=== PATIENT | male | born 1940 | race Caucasian/White ===

== ENCOUNTER 2018-01-03 10:33 | Inpatient (IN) ==
[2018-01-03] MEDS ORDERED: Acetaminophen 325 MG Tablet PO ONE (10:58)
[2018-01-03] MEDS ORDERED: Vancomycin Inj 1,000 MG in Sodium Chlor 0.9% Inj 250 ML IV.SIG STA (10:58)
[2018-01-03] MEDS ORDERED: MethylPREDNISolone Sod Succinate Inj 125 MG/2 ML Vial IV.PUSH ONE (10:58)
[2018-01-03] MEDS ORDERED: Piperacil/Tazo 4.5 GM Premix 4.5 GM/100 ML BAG IV.SIG STA (10:58)
--- NOTE | 2018-01-03 11:15 | ED ---
HPI General Chief Complaint: Shortness of Breath/Dyspnea Stated Complaint: SOB Time Seen by Provider: 01/03/18 10:55 Source: patient and family Limitations: other (shortness of breath) History of Present Illness 77-year-old male who is visiting here states he is always short of breath but over the past day he is gotten significantly more short of breath. He tried his breathing treatments but they did not help. Complaint: shortness of breath Onset (ago): day(s) Context: recent travel Severity: severe Consistency/Duration: progressively worsening Relieving factors: nothing Exacerbating factors: movement Known history of: COPD Associated symptoms: denies other symptoms Treatment prior to arrival: bronchodilator Related Data Home oxygen amount: none Allergies Allergy/AdvReac Type Severity Reaction Status Date / Time lisinopril Allergy Cough Verified 01/03/18 11:00 Review of Systems Except as stated in HPI: all other systems reviewed are negative (per family member) PMFSH History History Provided By: Family Member Medical History Medical History Afib (Acute) Bladder cancer (Acute) CAD (coronary artery disease) (Acute) COPD (chronic obstructive pulmonary disease) (Acute) Surgical History Surgical History History of urostomy (Acute) Social History Social History Second Hand Smoke Exposure: No Smoking Status: Former smoker Tobacco Type: Cigarettes How Often Do You Have a Drink Containing Alcohol: Never Recent Travel in [facility] within the Last 8 Weeks: No Recent Out of Country Travel within the Last 8 Weeks: No Exam Narrative Exam Narrative: GENERAL: 77-year-old male who appears short of breath SKIN: Focused skin assessment warm/dry. HEAD: Atraumatic. Normocephalic. EYES: Pupils equal and round. No scleral icterus. No injection or drainage. ENT: No nasal bleeding or discharge. Mucous membranes pink and moist. NECK: Trachea midline. No JVD. CARDIOVASCULAR: Tachycardic rate RESPIRATORY: Increased effort, decreased aeration bilaterally. GASTROINTESTINAL: Abdomen soft, non-tender, nondistended. MUSCULOSKELETAL: No obvious deformities. No clubbing. No cyanosis. NEUROLOGICAL: Awake. Motor grossly within normal limits. Normal speech. Course Reevaluation(s) Reevaluation #1: On reevaluation tachypnea has improved. Patient given IV fluids. Given broad-spectrum antibiotics originally but after review of x-ray azithromycin was also added on in addition to Zosyn and vancomycin. CTA will be ordered to rule out PE given multiple risk factors Reevaluation #2: CTA without PE. Findings show pneumonia with sepsis. He will be admitted for further care Consultations Consultation #1: resident team agree to admit with close monitoring in intermediate care Initial Documented Vital Signs Temperature 101.2 F H 01/03/18 10:36 Pulse Rate 126 H 01/03/18 10:36 Respiratory Rate 25 H 01/03/18 10:36 Blood Pressure 125/62 01/03/18 10:36 Pulse Oximetry 87 L 01/03/18 10:36 Last Documented Vital Signs Temperature 99.2 F 01/03/18 11:33 Pulse Rate 120 H 01/03/18 11:20 Respiratory Rate 36 H 01/03/18 11:20 Blood Pressure 132/75 01/03/18 10:45 Pulse Oximetry 94 L 01/03/18 11:19 Critical Care Time Critical Care Time: Yes Total Critical Care Time: 31 Attestation: Aggregate critical care time was 31 minutes. Time to perform other separately billable procedures was not included in the critical care time. My time did not include minutes spent treating any other patients simultaneously or on activities that did not directly contribute to the patient's treatment. The services I provided to this patient were to treat and/or prevent clinically significant deterioration that could result in: Respiratory failure, shock I provided critical care services requiring my management, as noted below: Chart data review, documentation time, medication orders and management, vital sign assessments/reviewing monitor data, ordering and reviewing lab tests, ordering and interpreting/reviewing x-rays and diagnostic studies, care of the patient and discussion of the patient with the admitting physicians. Medical Decision Making MDM Narrative Medical decision making narrative: Will check blood work, imaging and dose with Solu-Medrol and duo nebs and reevaluate. Differential Diagnosis Differential Diagnosis: PE, pneumonia, CHF, sepsis, renal failure, [place] Lab Data Lab results reviewed: Yes I reviewed the patient's lab results. Result diagrams: 01/03/18 11:20 01/03/18 11:20 Lab Results 01/03/18 01/03/18 01/03/18 Range/Units 11:10 11:20 11:20 WBC 15.1 H (4.0-11.0) th/mm3 RBC 5.28 (4.50-5.90) mil/mm3 Hgb 14.2 (13.0-17.0) gm/dL Hct 43.6 (39.0-51.0) % MCV 82.6 (80.0-100.0) fL MCH 26.9 L (27.0-34.0) pg MCHC 32.5 (32.0-36.0) % RDW 14.5 (11.6-17.2) % Plt Count 300 (150-450) th/mm3 MPV 8.8 (7.0-11.0) fL Neut % (Auto) 85.9 H (16.0-70.0) % Lymph % (Auto) 7.3 L (9.0-44.0) % [place] % (Auto) 6.2 (0.0-8.0) % Eos % (Auto) 0.1 (0.0-4.0) % Baso % (Auto) 0.5 (0.0-2.0) % Neut # (Auto) 13.0 H (1.8-7.7) th/mm3 Lymph # (Auto) 1.1 (1.0-4.8) th/mm3 [place] # (Auto) 0.9 (0.0-0.9) th/mm3 Eos # (Auto) 0.0 (0.0-0.4) th/mm3 Baso # (Auto) 0.1 (0.0-0.2) th/mm3 WBC Differential . Differential Comment Auto diff final PT 19.9 H (9.8-11.6) sec INR 2.0 Ratio APTT 22.4 L (24.3-30.1) sec Puncture Site Right radial Patient Temperature 98.6 O2 Saturation 94 (90-100) % ABG pH 7.52 H* (7.380-7.420) ABG pCO2 26 L (38-42) mmHg ABG pO2 72 (61-120) mmHg ABG HCO3 21 L (22-26) mmol/L ABG O2 Content 18.2 (12.0-20.0) Vol % ABG Base Excess -1.8 (-2-2) mmol/L ABG Methemoglobin 0.7 (0-2) % Bird Test Present Hemoglobin 13.8 (12.0-16.0) G/DL Carboxyhemoglobin 1.3 (0-4) % O2 Delivery Device Nasal cannula Liter Flow 2.00 L/M Critical Value Yes Sodium (136-145) meq/L Potassium (3.5-5.1) meq/L Chloride (98-107) meq/L Carbon Dioxide (21.0-32.0) meq/L Anion Gap (5-15) meq/L BUN (7-18) mg/dL Creatinine (0.60-1.30) mg/dL Estimated GFR (>89) mL/min Random Glucose (74-106) mg/dL Lactic Acid (0.4-2.0) mmol/L Calcium (8.5-10.1) mg/dL Magnesium (1.5-2.5) mg/dL Total Bilirubin (0.2-1.0) mg/dL AST (15-37) U/L ALT (12-78) U/L Alkaline Phosphatase (45-117) U/L Total Creatine Kinase (39-308) U/L CK-MB (CK-2) (0.5-3.6) ng/mL Troponin I (0.02-0.05) ng/mL B-Natriuretic Peptide (0-100) pg/mL Total Protein (6.4-8.2) g/dL Albumin (3.4-5.0) g/dL Urine Color (Yellw/Straw) Urine Clarity (Clear) Urine pH (5.0-8.5) Ur Specific [place] (1.002-1.035) Urine Protein (Neg-Trace) mg/dL Urine Glucose (UA) (Negative) mg/dL Urine Ketones (Negative) mg/dL Urine Occult Blood (Negative) Urine Nitrate (Negative) Urine Bilirubin (Negative) Urine Urobilinogen (Less than 2) mg/dL Ur Leukocyte Esterase (Negative) Urine RBC (0-3) /hpf Urine WBC (0-5) /hpf Urine WBC Clumps (None) Ur Squamous Epith Cells (0-5) /hpf Ur Renal Epithelial Cell (None) /hpf Triple Phos Crystals (None) /hpf Amorphous Sediment (None) /hpf Urine Bacteria (None) /hpf Urine Mucus (Occasional) /lpf Micro UA Comment Urine Culture Comments 01/03/18 01/03/18 01/03/18 Range/Units 11:20 11:20 11:20 WBC (4.0-11.0) th/mm3 RBC (4.50-5.90) mil/mm3 Hgb (13.0-17.0) gm/dL Hct (39.0-51.0) % MCV (80.0-100.0) fL MCH (27.0-34.0) pg MCHC (32.0-36.0) % RDW (11.6-17.2) % Plt Count (150-450) th/mm3 MPV (7.0-11.0) fL Neut % (Auto) (16.0-70.0) % Lymph % (Auto) (9.0-44.0) % Weak[place] % (Auto) (0.0-8.0) % Eos % (Auto) (0.0-4.0) % Baso % (Auto) (0.0-2.0) % Neut # (Auto) (1.8-7.7) th/mm3 Lymph # (Auto) (1.0-4.8) th/mm3 [place] # (Auto) (0.0-0.9) th/mm3 Eos # (Auto) (0.0-0.4) th/mm3 Baso # (Auto) (0.0-0.2) th/mm3 WBC Differential Differential Comment PT (9.8-11.6) sec INR Ratio APTT (24.3-30.1) sec Puncture Site Patient Temperature O2 Saturation (90-100) % ABG pH (7.380-7.420) ABG pCO2 (38-42) mmHg ABG pO2 (61-120) mmHg ABG HCO3 (22-26) mmol/L ABG O2 Content (12.0-20.0) Vol % ABG Base Excess (-2-2) mmol/L ABG Methemoglobin (0-2) % Bird Test Hemoglobin (12.0-16.0) G/DL Carboxyhemoglobin (0-4) % O2 Delivery Device Liter Flow L/M Critical Value Sodium 140 (136-145) meq/L Potassium 4.0 (3.5-5.1) meq/L Chloride 107 (98-107) meq/L Carbon Dioxide 20.2 L (21.0-32.0) meq/L Anion Gap 13 (5-15) meq/L BUN 34 H (7-18) mg/dL Creatinine 1.91 H (0.60-1.30) mg/dL Estimated GFR 34 L (>89) mL/min Random Glucose 199 H (74-106) mg/dL Lactic Acid 2.6 H (0.4-2.0) mmol/L Calcium 8.2 L (8.5-10.1) mg/dL Magnesium 1.6 (1.5-2.5) mg/dL Total Bilirubin 0.6 (0.2-1.0) mg/dL AST 15 (15-37) U/L ALT 21 (12-78) U/L Alkaline Phosphatase 74 (45-117) U/L Total Creatine Kinase 207 (39-308) U/L CK-MB (CK-2) 2.9 (0.5-3.6) ng/mL Troponin I 0.12 H (0.02-0.05) ng/mL B-Natriuretic Peptide 270 H (0-100) pg/mL Total Protein 7.1 (6.4-8.2) g/dL Albumin 3.0 L (3.4-5.0) g/dL Urine Color (Yellw/Straw) Urine Clarity (Clear) Urine pH (5.0-8.5) Ur Specific [place] (1.002-1.035) Urine Protein (Neg-Trace) mg/dL Urine Glucose (UA) (Negative) mg/dL Urine Ketones (Negative) mg/dL Urine Occult Blood (Negative) Urine Nitrate (Negative) Urine Bilirubin (Negative) Urine Urobilinogen (Less than 2) mg/dL Ur Leukocyte Esterase (Negative) Urine RBC (0-3) /hpf Urine WBC (0-5) /hpf Urine WBC Clumps (None) Ur Squamous Epith Cells (0-5) /hpf Ur Renal Epithelial Cell (None) /hpf Triple Phos Crystals (None) /hpf Amorphous Sediment (None) /hpf Urine Bacteria (None) /hpf Urine Mucus (Occasional) /lpf Micro UA Comment Urine Culture Comments 01/03/18 Range/Units 11:45 WBC (4.0-11.0) th/mm3 RBC (4.50-5.90) mil/mm3 Hgb (13.0-17.0) gm/dL Hct (39.0-51.0) % MCV (80.0-100.0) fL MCH (27.0-34.0) pg MCHC (32.0-36.0) % RDW (11.6-17.2) % Plt Count (150-450) th/mm3 MPV (7.0-11.0) fL Neut % (Auto) (16.0-70.0) % Lymph % (Auto) (9.0-44.0) % [place] % (Auto) (0.0-8.0) % Eos % (Auto) (0.0-4.0) % Baso % (Auto) (0.0-2.0) % Neut # (Auto) (1.8-7.7) th/mm3 Lymph # (Auto) (1.0-4.8) th/mm3 [place] # (Auto) (0.0-0.9) th/mm3 Eos # (Auto) (0.0-0.4) th/mm3 Baso # (Auto) (0.0-0.2) th/mm3 WBC Differential Differential Comment PT (9.8-11.6) sec INR Ratio APTT (24.3-30.1) sec Puncture Site Patient Temperature O2 Saturation (90-100) % ABG pH (7.380-7.420) ABG pCO2 (38-42) mmHg ABG pO2 (61-120) mmHg ABG HCO3 (22-26) mmol/L ABG O2 Content (12.0-20.0) Vol % ABG Base Excess (-2-2) mmol/L ABG Methemoglobin (0-2) % Bird Test Hemoglobin (12.0-16.0) G/DL Carboxyhemoglobin (0-4) % O2 Delivery Device Liter Flow L/M Critical Value Sodium (136-145) meq/L Potassium (3.5-5.1) meq/L Chloride (98-107) meq/L Carbon Dioxide (21.0-32.0) meq/L Anion Gap (5-15) meq/L BUN (7-18) mg/dL Creatinine (0.60-1.30) mg/dL Estimated GFR (>89) mL/min Random Glucose (74-106) mg/dL Lactic Acid (0.4-2.0) mmol/L Calcium (8.5-10.1) mg/dL Magnesium (1.5-2.5) mg/dL Total Bilirubin (0.2-1.0) mg/dL AST (15-37) U/L ALT (12-78) U/L Alkaline Phosphatase (45-117) U/L Total Creatine Kinase (39-308) U/L CK-MB (CK-2) (0.5-3.6) ng/mL Troponin I (0.02-0.05) ng/mL B-Natriuretic Peptide (0-100) pg/mL Total Protein (6.4-8.2) g/dL Albumin (3.4-5.0) g/dL Urine Color [place] (Yellw/Straw) Urine Clarity Cloudy H (Clear) Urine pH 8.0 (5.0-8.5) Ur Specific [place] 1.014 (1.002-1.035) Urine Protein 500 or greater (Neg-Trace) mg/dL Urine Glucose (UA) Negative (Negative) mg/dL Urine Ketones Negative (Negative) mg/dL Urine Occult Blood Negative (Negative) Urine Nitrate Negative (Negative) Urine Bilirubin Negative (Negative) Urine Urobilinogen 2.0 H (Less than 2) mg/dL Ur Leukocyte Esterase Small H (Negative) Urine RBC 4 H (0-3) /hpf Urine WBC 22 H (0-5) /hpf Urine WBC Clumps Rare H (None) Ur Squamous Epith Cells 3 (0-5) /hpf Ur Renal Epithelial Cell 1 (None) /hpf Triple Phos Crystals Many H (None) /hpf Amorphous Sediment Many H (None) /hpf Urine Bacteria Many H (None) /hpf Urine Mucus Few H (Occasional) /lpf Micro UA Comment Culture indicated Urine Culture Comments Culture indicated Imaging Data Attestation: I personally reviewed and interpreted this imaging study as follows : Radiologist's impression: Chest X-Ray 01/03/18 10:58 CONCLUSION: Patchy infiltrate in the left perihilar region and left lung base most characteristic of pneumonia. Chest CTA 01/03/18 12:04 CONCLUSION: 1. No evidence of pulmonary emboli. 2. Lingula and left lower lobe infiltrate most characteristic of pneumonia. 3. Small focal area of abnormal opacity in the right middle lobe as well. 4. Underlying emphysema. Discharge Plan Discharge Disposition Patient Disposition: 30 Still Patient Discharge Details Diagnosis: Sepsis, Community acquired pneumonia, Acute exacerbation of chronic obstructive airways disease Physicians Team ED Provider: Prisca Obrien Primary Care Provider: UNKNOWN, Attending Provider: Lisa Garber Discharge Interventions Interventions: Vital Signs Last Done: 01/03/18 11:33 Status ED Status: Admitted Patient
[2018-01-03 11:31] LABS: Baso # (Auto) 0.1 th/mm3 (0.0-0.2); Baso % (Auto) 0.5 % (0.0-2.0); Eos % (Auto) 0.1 % (0.0-4.0); Hematocrit 43.6 % (39.0-51.0); Hemoglobin 14.2 gm/dL (13.0-17.0); Lymph # (Auto) 1.1 th/mm3 (1.0-4.8); Lymph % (Auto) 7.3 % (9.0-44.0); Mean Corpuscular HGB Conc 32.5 % (32.0-36.0); Mean Corpuscular Hemoglobin 26.9 pg (27.0-34.0); Mean Corpuscular Volume 82.6 fL (80.0-100.0); Mean Platelet Volume 8.8 fL (7.0-11.0); Mono # (Auto) 0.9 th/mm3 (0.0-0.9); Mono % (Auto) 6.2 % (0.0-8.0); Neut % (Auto) 85.9 % (16.0-70.0); Platelet Count 300 th/mm3 (150-450); Red Blood Count 5.28 mil/mm3 (4.50-5.90); Red Cell Distribution Width 14.5 % (11.6-17.2); White Blood Count 15.1 th/mm3 (4.0-11.0)
[2018-01-03 11:32] LABS: ABG Base Excess -1.8 mmol/L (-2-2); ABG PCO2 26 mmHg (38-42); ABG PO2 72 mmHg (61-120)
[2018-01-03 11:42] LABS: Activated Partial Thrombo Time 22.4 sec (24.3-30.1); Prothrombin Time 19.9 sec (9.8-11.6)
--- NOTE | 2018-01-03 11:48 | XR ---
EXAM DATE: 01/03/2018 11:37 AM EDT AGE/SEX: 77 years / Male INDICATIONS: Short of breath. Fever. CLINICAL DATA: This is the patient's initial encounter. Patient reports that signs and symptoms have been present for 1 day and indicates a pain score of 6/10. MEDICAL/SURGICAL HISTORY: None. None. COMPARISON: No prior exams available for comparison. FINDINGS: 2 AP portable erect views of the chest were obtained and demonstrate patchy infiltrate in the left pe rihilar region and left lung base. The right lung is clear. There is no effusion. The heart size is a t the upper limits of normal. The bony thorax is intact. There are multiple overlying electrocardiogr am leads. Mild atherosclerotic changes are present in the aorta with calcification. CONCLUSION: Patchy infiltrate in the left perihilar region and left lung base most characteristic of pneumonia. Electronically signed by: Chong Ford MD 01/03/2018 11:47 AM EDT
[2018-01-03 11:56] LABS: Anion Gap 13 meq/L (5-15); Aspartate Aminotransferase 15 U/L (15-37); Blood Urea Nitrogen 34 mg/dL (7-18); Calcium 8.2 mg/dL (8.5-10.1); Carbon Dioxide 20.2 meq/L (21.0-32.0); Chloride 107 meq/L (98-107); Glomerular Filtration Rate 34 mL/min (>89); Glucose,Random 199 mg/dL (74-106); Magnesium 1.6 mg/dL (1.5-2.5); Sodium 140 meq/L (136-145)
[2018-01-03 11:57] LABS: Alanine Aminotransferase 21 U/L (12-78)
[2018-01-03 12:00] LABS: Alkaline Phosphatase 74 U/L (45-117); Creatine Kinase 207 U/L (39-308); Total Protein 7.1 g/dL (6.4-8.2); Troponin I 0.12 ng/mL (0.02-0.05)
[2018-01-03] MEDS ORDERED: Azithromycin Inj 500 MG in Sodium Chlor 0.9% Inj 250 ML IV.SIG ONE (12:02)
[2018-01-03] MEDS ORDERED: Sod Chloride 0.9% Inj 1,000 ML IV.SIG ONE (12:06)
[2018-01-03] MEDS ORDERED: Sodium Chlor 0.9% Inj 500 ML IV.SIG ONE (12:10)
[2018-01-03 12:13] LABS: Creatine Kinase MB 2.9 ng/mL (0.5-3.6)
[2018-01-03 12:25] LABS: Amorphous Sediment,Urine Many /hpf; Bacteria,Urine Many /hpf; Bilirubin,Urine Negative (Negative); Clarity,Urine Cloudy (Clear); Color,Urine Amber (Yellw/Straw); Glucose,Urine (UA) Negative (Negative); Leukocyte Esterase,Urine Small (Negative); Mucus,Urine Few /lpf (Occasional); Nitrite,Urine Negative (Negative); Renal Epithelial Cells,Urine 1 /hpf; Specific Gravity,Urine 1.014 (1.002-1.035); Squamous Epithelial Cell,Urine 3 /hpf (0-5); Triple Phosphate Crystal,Urine Many /hpf
--- NOTE | 2018-01-03 12:59 | CT ---
EXAM DATE: 01/03/2018 12:45 PM EDT AGE/SEX: 77 years / Male INDICATIONS: Shortness of breath today. Fever. Abnormal chest x-ray examination characteristic of l eft lung pneumonia. CLINICAL DATA: This is the patient's initial encounter. Patient reports that signs and symptoms have been present for 1 day and indicates a pain score of 0/10. MEDICAL/SURGICAL HISTORY: Carcinoma, bladder. Chronic obstructive pulmonary disease. Cardiovascul ar disease. None. RADIATION DOSE: 10.81 CTDI (mGy) COMPARISON: [facility], CHEST 1V SINGLE AP, 01/03/2018. . TECHNIQUE: Volumetric scanning was performed using a multi-row detector CT scanner during bolus infu jenna of 50 ml Visipaque 320 (iodixanol) nonionic water-soluble contrast as a single exam dose. The d matt was post processed with a variety of visualization algorithms including full volume maximum inten sity projection and sliding thin slab reformation. Using automated exposure control and adjustment of the mA and/or kV according to patient size, radiation dose was kept as low as reasonably achievable to obtain optimal diagnostic quality images. DICOM format image data is available electronically for review and comparison. FINDINGS: Pulmonary Arteries: No filling defects are seen in the pulmonary arteries out to the subsegmental ve ssels. The left and right pulmonary arteries are normal in diameter. Lung: There are multiple small areas of consolidative opacity in the lingula as well as more patchy infiltrate in the left lower lobe. There is a single focal area of mild opacity in the right middle l obe. There is hyperinflation and emphysema. Effusion: None. Mediastinum: No evidence of mediastinal or hilar adenopathy. Other: The axilla is unremarkable. CONCLUSION: 1. No evidence of pulmonary emboli. 2. Lingula and left lower lobe infiltrate most characteristic of pneumonia. 3. Small focal area of abnormal opacity in the right middle lobe as well. 4. Underlying emphysema. Electronically signed by: Chong Ford MD 01/03/2018 12:58 PM EDT
--- NOTE | 2018-01-03 13:24 | P.HPFP ---
History of Present Illness Primary Care Physician: UNKNOWN <Lisa Garber - 01/04/18 12:25> UNKNOWN <Carlota Grande - 01/03/18 13:44> History of Present Illness: 77-year-old male, past medical history of COPD, chronic kidney disease stage III, atrial fibrillation, coronary artery disease, diabetes, CHF presents with community-acquired pneumonia. Pt had chills and shaking this morning and was having more trouble breathing than normal. This was at 08:30AM, and they arrived at 9:30AM in the ED. He did not take any of his medications yet today. He did use his Advair inhaler this morning in addition to his "emergency inhaler" which usually helps. He did not feel feverish. The did notice that his nose was turning purple colored this morning. As of now, he looks 100% better than this morning. He has never been hospitalized for his COPD before and this is the first time he has felt this time of shortness of breath. Denies any chest pain/ pressure. Denies any N/V. No numbness/tingling. He did experience some dizzyness. The whole episode lasted about 1 hour until they got here and administered O2. Left leg was swollen 2 weeks ago at PCP's office and venous u/s was done, negative results. <Carlota Grande - 01/04/18 03:10> - Diagnosis (1) Community acquired pneumonia (2) COPD (chronic obstructive pulmonary disease) (3) Kidney disease, chronic, stage III (GFR 30-59 ml/min) (4) Afib (5) Elevated troponin (6) Abnormal finding on urinalysis (7) CAD (coronary artery disease) (8) Diabetes (9) CHF (congestive heart failure) (10) Nutrition, metabolism, and development symptoms (11) DVT prophylaxis <Lisa Garber - 01/04/18 12:25> (1) Community acquired pneumonia (2) COPD (chronic obstructive pulmonary disease) (3) Kidney disease, chronic, stage III (GFR 30-59 ml/min) (4) Afib (5) Elevated troponin (6) Abnormal finding on urinalysis (7) CAD (coronary artery disease) (8) Diabetes (9) CHF (congestive heart failure) (10) Nutrition, metabolism, and development symptoms (11) DVT prophylaxis <Carlota Grande 07/23/18 03:03> Inpatient Certification: I certify that the inpatient services were ordered in accordance with Medicare regulations governing the order. This includes certification that hospital inpatient services are reasonable and necessary and in the case of services not specified as inpatient-only under 42 CFR 419.22(n), that they are appropriately provided as inpatient services in accordance to with the 2-midnight benchmark under 43 CFR 412.3(e) <JcarlosLisa 01/04/18 12:25> I certify that the inpatient services were ordered in accordance with Medicare regulations governing the order. This includes certification that hospital inpatient services are reasonable and necessary and in the case of services not specified as inpatient-only under 42 CFR 419.22(n), that they are appropriately provided as inpatient services in accordance to with the 2-midnight benchmark under 43 CFR 412.3(e) [facility]> Review of Systems Constitutional: Denies anorexia, Denies daytime sleepiness, Denies fever(s), Denies weakness, Denies weight loss <[facility] 01/03/18 13:44> Eyes: Denies blurry vision <[facility] 01/03/18 13:44> Ears, Nose, Mouth, and Throat: Denies abnormal hearing, Denies nasal congestion , Denies nose pain, Denies sinus pressure, Denies sore throat <[facility] 01/03/18 13:44> Cardiovascular: Denies chest pain, Denies chest pain at rest, Denies chest pain with activity, Denies radiating jaw, neck or arm pain, Denies rapid, pounding, or irregular heartbeat, Denies shortness of breath with activity <[facility] 01/03/18 13:44> Respiratory: Reports chest congestion (clear/yellow, normal as baseline), Reports cough, Reports shortness of breath with activity, Denies coughing up blood, Denies pain with cough <[facility] 01/03/18 13:44> Gastrointestinal: Denies black, tarry stools, Denies change in bowel habits, Denies coffee ground vomit, Denies pain with swallowing <[facility] 13:44> Genitourinary: Denies blood in urine, Denies urinary hesitancy, Denies urinary incontinence <Carlota Grande 01/03/18 13:44> Musculoskeletal: Denies back pain, Denies body aches, Denies muscle weakness, Denies neck pain <Carlota Grande 01/03/18 13:44> Neurologic: Denies abnormal hearing, Denies abnormal movements, Denies headache( s), Denies convulsions <Carlota Grande 01/03/18 13:44> Psychiatric: Denies depression, Denies mood swings, Denies panic attacks < Carlota Grande 01/03/18 13:44> Endocrine: Denies excessive sweating, Denies rapid, pounding, or irregular heartbeat <Carloat Grande 01/03/18 13:44> Hematologic/Lymphatic: Denies easy bruising <Carlota Grande 01/03/18 13:44> Allergic/Immunologic: Denies throat swelling <Carlota Grande 01/03/18 13:44 > PMFSH - History History Provided By: Patient, Family Member <Carlota Grande 01/03/18 13:44> - Medical History Medical History: Medical History (Last Updated 01/03/18 @ 13:41 by Carlota Grande MD, R2) Diabetes (Acute) Hypertension (Acute) Kidney disease, chronic, stage III (GFR 30-59 ml/min) (Acute) Afib (Acute) CAD (coronary artery disease) (Acute) COPD (chronic obstructive pulmonary disease) (Acute) Bladder cancer (Acute) History of right common carotid artery stent placement <Lisa Garber - 01/04/18 12:25> Medical History (Last Updated 01/03/18 @ 13:41 by Carlota Grande MD, R2) Diabetes (Acute) Hypertension (Acute) Kidney disease, chronic, stage III (GFR 30-59 ml/min) (Acute) Afib (Acute) CAD (coronary artery disease) (Acute) COPD (chronic obstructive pulmonary disease) (Acute) Bladder cancer (Acute) History of right common carotid artery stent placement <Carlota Grande 01/03/18 13:44> - Surgical History Surgical History: Surgical History (Last Updated 01/03/18 @ 13:42 by Carlota Grande MD, R2) History of urostomy (Acute) History of coronary artery stent placement <Lisa Garber - 01/04/18 12:25> Surgical History (Last Updated 01/03/18 @ 13:42 by Carlota Grande MD, R2) History of urostomy (Acute) History of coronary artery stent placement <Carlota Grande 01/03/18 13:44> - Family History Family History: Family History (Last Updated 01/03/18 @ 13:42 by Carlota Grande MD, R2) Father Cancer <Lisa Garber - 01/04/18 12:25> Family History (Last Updated 01/03/18 @ 13:42 by Carlota Grande MD, R2) Father Cancer <Carlota Grande 01/03/18 13:44> - Tobacco History Second Hand Smoke Exposure: No <Carlota Grande 01/03/18 13:24> Tobacco Use In Past 30 Days: No <Carlota Grande 01/03/18 13:24> Smoking Status: Former smoker (x 60 years, stopped 7 years ago) <Carlota Grande 01/03/18 13:44> Tobacco Type: Cigarettes <Carlota Grande 01/03/18 13:24> Packs Per Day: 0.5 <Carlota Grande 01/03/18 13:44> - Alcohol History How Often Do You Have a Drink Containing Alcohol: Never <Carlota Grande 13:24> - Substance Use History Substance History: No History of Abuse <Carlota Grande 01/03/18 13:44> - Travel History Recent Travel in the [place] Within the Last 8 Weeks: No <Carlota Grande 13:24> Recent Travel Out of the Country Within the Last 8 Weeks: No <Carlota Grande 01/03/18 13:24> - Immunization History Tetanus Immunization: Unsure <Carlota Grande 01/03/18 13:24> Medications and Allergies Allergies Allergy/AdvReac Type Severity Reaction Status Date / Time lisinopril Allergy Cough Verified 01/03/18 11:00 <CarmencatarinaLisa - 01/04/18 12:25> Home Medications Medication Instructions Recorded Confirmed Type aspirin [Aspirin Low Dose] 81 mg PO DAILY 01/03/18 01/03/18 History cholecalciferol (vitamin D3) 1,000 unit PO DAILY 01/03/18 01/03/18 History [Vitamin D3] ferrous sulfate 325 mg PO DAILY 01/03/18 01/03/18 History fluticasone-salmeterol [Advair 1 puff INHALATION DAILY 01/03/18 01/03/18 History Diskus] folic acid 0.8 mg PO DAILY 01/03/18 01/03/18 History furosemide [Lasix] 40 mg PO DAILY 01/03/18 01/04/18 History glipizide 10 mg PO DAILY 01/03/18 01/03/18 History metoprolol tartrate [Lopressor] 50 mg PO DAILY 01/03/18 01/04/18 History potassium chloride [Klor-Con M20] 40 meq PO QPM 01/03/18 01/03/18 History simvastatin 40 mg PO QPM 01/03/18 01/03/18 History warfarin [Coumadin] 5 mg PO QPM 01/03/18 01/03/18 History insulin glargine [Lantus U-100 20 unit SUB-Q HS 01/04/18 01/04/18 History Insulin] warfarin [Coumadin] 1 mg PO DAILY 01/04/18 01/04/18 History <Lisa Garber - 01/04/18 12:25> Active Medications: Active Medications Al Hydroxide/Mg Hydroxide (Milk Of Suad Colindres) 30 ml PO Q12H PRN PRN Reason: Mild Constipation Albuterol (Albuterol Neb (Prn)) 2.5 mg NEB Q2HR NEB PRN PRN Reason: SHORTNESS OF BREATH Albuterol (Duoneb Neb (Chantell)) 1 ampul NEB Q4HR NEB CHANTELL Last Admin: 01/04/18 12:02 Dose: 1 ampul Aspirin (Ecotrin) 81 mg PO DAILY CHANTELL Last Admin: 01/04/18 09:47 Dose: 81 mg Bisacodyl (Dulcolax Supp) 10 mg RECTAL DAILY PRN PRN Reason: SEVERE CONSITIPATION Budesonide/Formoterol Fumarate (Symbicort 160/4.5 Mcg Inh) 2 puff INH BID [facility] Last Admin: 01/04/18 09:48 Dose: 2 puff Dextrose (D50w Vial) 50 ml IV.PUSH UNSCH PRN PRN Reason: PER HYPOGLYCEMIA PROTOCOL Ferrous Sulfate (Ferosul) 325 mg PO DAILY [facility] Last Admin: 01/04/18 09:47 Dose: 325 mg Furosemide (Lasix) 20 mg PO DAILY CHANTELL Last Admin: 01/04/18 09:47 Dose: 20 mg Glucagon (Glucagon Inj) 1 mg OTHER PRN PRN PRN Reason: for Hypoglycemia Protocol Azithromycin 500 mg/ Sodium (Chloride) 250 mls @ 250 mls/hr IV.SIG Q24H CHANTELL Last Infusion: 01/04/18 06:59 Dose: Infused Ceftriaxone Sodium 1,000 mg/ (Sodium Chloride) 100 mls @ 200 mls/hr IV.SIG Q24H CHANTELL Last Infusion: 01/04/18 06:59 Dose: Infused Insulin Human Regular (Novolin R Correctional Sugar Inj) 0 units SQ ACHS AND 3AM CHANTELL; Protocol Last Admin: 01/04/18 12:12 Dose: 7 units Lactulose (Lactulose Liq) 30 ml PO DAILY PRN PRN Reason: SEVERE CONSITIPATION Methylprednisolone Sodium Succinate (Solumedrol Inj) 40 mg IV.PUSH Q8HR [facility] Stop: 01/04/18 22:01 Last Admin: 01/04/18 05:35 Dose: 40 mg Metoprolol Tartrate (Lopressor) 50 mg PO BID [facility] Last Admin: 01/04/18 09:47 Dose: 50 mg Non-Formulary Medication (Insulin Glargine) 20 unit SQ HS [facility] Pantoprazole Sodium (Protonix Inj) 40 mg IV.PUSH Q24H [facility] Last Admin: 01/03/18 21:59 Dose: 40 mg Potassium Chloride (K-Dur) 40 meq PO QPM [facility] Pravastatin Sodium (Pravachol) 40 mg PO QPM [facility] Sennosides (Senokot) 17.2 mg PO Q12H PRN PRN Reason: Moderate Constipation Sodium Chloride (Ns Flush) 2 ml IV.FLUSH BID [facility] Last Admin: 01/04/18 09:47 Dose: 2 ml Sodium Chloride (Ns Flush) 2 ml IV.FLUSH PRN PRN PRN Reason: FLUSH AFTER USING IV ACCESS Sodium Chloride (Ns Flush) 2 ml IV.FLUSH BID [facility] Last Admin: 01/04/18 10:01 Dose: Not Given Sodium Chloride (Ns Flush) 2 ml IV.FLUSH PRN PRN PRN Reason: FLUSH AFTER USING IV ACCESS Temazepam (Restoril) 15 mg PO HS PRN PRN Reason: INSOMNIA Warfarin Sodium (Coumadin) 5 mg PO QPM [facility] <Lisa Garber - 01/04/18 12:25> Exam Vital signs: Vital Signs 01/03/18 13:41 01/03/18 14:34 01/03/18 16:00 Temperature 99.2 F 98.8 F Pulse Rate 122 H 101 H Respiratory Rate 25 H 20 Blood Pressure 132/65 118/74 Pulse Oximetry 94 L 97 01/03/18 19:00 01/03/18 19:32 01/03/18 20:00 Temperature 98.4 F Pulse Rate 91 H 81 92 H Respiratory Rate 16 20 Blood Pressure 115/69 Pulse Oximetry 96 97 01/03/18 21:00 01/03/18 22:00 01/03/18 23:00 Temperature Pulse Rate 96 H 94 H 74 Respiratory Rate Blood Pressure Pulse Oximetry 01/03/18 23:35 01/04/18 00:00 01/04/18 01:00 Temperature Pulse Rate 82 82 80 Respiratory Rate 16 16 Blood Pressure 116/69 Pulse Oximetry 97 01/04/18 02:00 01/04/18 03:00 01/04/18 03:46 Temperature Pulse Rate 76 87 83 Respiratory Rate 16 Blood Pressure Pulse Oximetry 01/04/18 04:00 01/04/18 05:00 01/04/18 06:00 Temperature Pulse Rate 76 72 70 Respiratory Rate 16 Blood Pressure 103/64 Pulse Oximetry 97 01/04/18 07:00 01/04/18 09:00 01/04/18 10:00 Temperature Pulse Rate 86 96 H 94 H Respiratory Rate Blood Pressure Pulse Oximetry 01/04/18 11:00 Temperature Pulse Rate 98 H Respiratory Rate Blood Pressure Pulse Oximetry Intake & Output 01/03/18 01/04/18 01/04/18 18:59 06:59 18:59 Intake Total 240 / 240 840 / 840 1949 Output Total 100 / 100 1100 / 1100 Balance 140 / 140 -260 / -260 1949 Weight 96.615 kg 90 kg Intake: IV 600 / 600 1950 / 1949 Azithromycin Inj 500 MG In NS 250 / 250 Inj 250 ML @ 250 mls/hr IV.SIG Q24H [facility] Rx#:[id number] Rocephin Inj 1,000 MG In NS Inj 100 / 100 100 ML @ 200 mls/hr IV.SIG Q24H CHANTELL Rx#:[id number] Oral 240 / 240 240 / 240 Output: Urine Amount (Stoma) 100 / 100 1100 / 1100 Nephrostomy Tube 100 / 100 1100 / 1100 Other: # Bowel Movements 1 <Lisa Garber - 01/04/18 12:25> Vital Signs 01/03/18 10:36 01/03/18 10:45 01/03/18 11:19 Temperature 101.2 F H Pulse Rate 126 H 126 H Respiratory Rate 25 H 28 H Blood Pressure 125/62 132/75 Pulse Oximetry 87 L 86 L 94 L 01/03/18 11:20 01/03/18 11:33 Temperature 99.2 F Pulse Rate 120 H Respiratory Rate 36 H Blood Pressure Pulse Oximetry Intake & Output 01/02/18 01/03/18 01/03/18 18:59 06:59 18:59 Output Total 100 / 100 Balance -100 / -100 Weight 96.615 kg Output: Urine Amount (Stoma) 100 / 100 Nephrostomy Tube 100 / 100 <Carlota Grande - 01/03/18 13:24> - Constitutional mild distress (Accessory muscle use for breathing, pursed lips are mentally) < Carlota Grande - 01/04/18 03:10> - Routine HEENT Exam Head: Present: normocephalic <Carlota Grande - 01/04/18 03:10> ENT: Present: mucous membranes moist <Carlota Grande - 01/04/18 03:10> - Routine Respiratory Exam Present: accessory muscle use (No wheezing), decreased breath sounds (Decreased breath sounds at lung bases bilaterally) <Carlota Grande - 01/04/18 03:10> - Routine Cardiovascular Exam Present: RRR, S1, S2 <Carlota Grande - 01/04/18 03:10> - Routine Abdominal Exam Present: soft, distended (Slightly distended) <Carlota Grande - 01/04/18 03: 10> - Routine Extremities Exam Present: normal capillary refill. Absent: cyanosis, Annemarie's sign <Carlota Grande - 01/04/18 03:10> - Routine Skin Exam Present: intact <Carlota Grande - 01/04/18 03:10> - Routine Neurological Exam Present: alert, oriented X3, CN II-XII intact, moving all extremities, normal tone, normal speech. Absent: facial asymmetry <Calrota Grande - 01/04/18 03: 10> Results - Labs Result diagrams: 01/04/18 05:23 01/04/18 05:23 <Lisa Garber - 01/04/18 12:25> Abnormal lab results 01/03/18 01/03/18 01/03/18 Range/Units 11:45 15:13 17:40 WBC (4.0-11.0) th/mm3 RBC (4.50-5.90) mil/mm3 Hgb (13.0-17.0) gm/dL Hct (39.0-51.0) % Neut % (Auto) (16.0-70.0) % Lymph % (Auto) (9.0-44.0) % Neut # (Auto) (1.8-7.7) th/mm3 Lymph # (Auto) (1.0-4.8) th/mm3 [place] # (Auto) (0.0-0.9) th/mm3 Seg Neuts % (Manual) (16-70) % Band Neuts % (Manual) (0-6) % Lymphocytes % (Manual) (9-44) % Abs Neuts (Manual) (1.8-7.7) th/mm3 PT (9.8-11.6) sec Chloride (98-107) meq/L BUN (7-18) mg/dL Creatinine (0.60-1.30) mg/dL Estimated GFR (>89) mL/min POC Glucose (68-110) mg/dl Random Glucose (74-106) mg/dL Lactic Acid 2.1 H (0.4-2.0) mmol/L Calcium (8.5-10.1) mg/dL Troponin I 0.14 H (0.02-0.05) ng/mL B-Natriuretic Peptide (0-100) pg/mL Albumin (3.4-5.0) g/dL Urine Clarity Cloudy H (Clear) Urine Urobilinogen 2.0 H (Less than 2) mg/dL Ur Leukocyte Esterase Small H (Negative) Urine RBC 4 H (0-3) /hpf Urine WBC 22 H (0-5) /hpf Urine WBC Clumps Rare H (None) Triple Phos Crystals Many H (None) /hpf Amorphous Sediment Many H (None) /hpf Urine Bacteria Many H (None) /hpf Urine Mucus Few H (Occasional) /lpf 01/03/18 01/03/18 01/03/18 Range/Units 21:25 22:56 23:19 WBC (4.0-11.0) th/mm3 RBC (4.50-5.90) mil/mm3 Hgb (13.0-17.0) gm/dL Hct (39.0-51.0) % Neut % (Auto) (16.0-70.0) % Lymph % (Auto) (9.0-44.0) % Neut # (Auto) (1.8-7.7) th/mm3 Lymph # (Auto) (1.0-4.8) th/mm3 [place] # (Auto) (0.0-0.9) th/mm3 Seg Neuts % (Manual) (16-70) % Band Neuts % (Manual) (0-6) % Lymphocytes % (Manual) (9-44) % Abs Neuts (Manual) (1.8-7.7) th/mm3 PT (9.8-11.6) sec Chloride (98-107) meq/L BUN (7-18) mg/dL Creatinine (0.60-1.30) mg/dL Estimated GFR (>89) mL/min POC Glucose 536 H* 454 H* (68-110) mg/dl Random Glucose (74-106) mg/dL Lactic Acid (0.4-2.0) mmol/L Calcium (8.5-10.1) mg/dL Troponin I 0.11 H (0.02-0.05) ng/mL B-Natriuretic Peptide (0-100) pg/mL Albumin (3.4-5.0) g/dL Urine Clarity (Clear) Urine Urobilinogen (Less than 2) mg/dL Ur Leukocyte Esterase (Negative) Urine RBC (0-3) /hpf Urine WBC (0-5) /hpf Urine WBC Clumps (None) Triple Phos Crystals (None) /hpf Amorphous Sediment (None) /hpf Urine Bacteria (None) /hpf Urine Mucus (Occasional) /lpf 01/04/18 01/04/18 01/04/18 Range/Units 03:36 05:23 05:23 WBC 18.0 H (4.0-11.0) th/mm3 RBC 4.43 L (4.50-5.90) mil/mm3 Hgb 12.1 L D (13.0-17.0) gm/dL Hct 36.5 L (39.0-51.0) % Neut % (Auto) 87.9 H (16.0-70.0) % Lymph % (Auto) 5.0 L (9.0-44.0) % Neut # (Auto) 15.8 H (1.8-7.7) th/mm3 Lymph # (Auto) 0.9 L (1.0-4.8) th/mm3 [place] # (Auto) 1.3 H (0.0-0.9) th/mm3 Seg Neuts % (Manual) 81 H (16-70) % Band Neuts % (Manual) 10 H (0-6) % Lymphocytes % (Manual) 6 L (9-44) % Abs Neuts (Manual) 16.4 H (1.8-7.7) th/mm3 PT (9.8-11.6) sec Chloride 109 H (98-107) meq/L BUN 38 H (7-18) mg/dL Creatinine 1.92 H (0.60-1.30) mg/dL Estimated GFR 34 L (>89) mL/min POC Glucose 331 H (68-110) mg/dl Random Glucose 225 H (74-106) mg/dL Lactic Acid (0.4-2.0) mmol/L Calcium 8.2 L (8.5-10.1) mg/dL Troponin I (0.02-0.05) ng/mL B-Natriuretic Peptide (0-100) pg/mL Albumin 2.9 L (3.4-5.0) g/dL Urine Clarity (Clear) Urine Urobilinogen (Less than 2) mg/dL Ur Leukocyte Esterase (Negative) Urine RBC (0-3) /hpf Urine WBC (0-5) /hpf Urine WBC Clumps (None) Triple Phos Crystals (None) /hpf Amorphous Sediment (None) /hpf Urine Bacteria (None) /hpf Urine Mucus (Occasional) /lpf 01/04/18 01/04/18 01/04/18 Range/Units 05:23 05:23 09:40 WBC (4.0-11.0) th/mm3 RBC (4.50-5.90) mil/mm3 Hgb (13.0-17.0) gm/dL Hct (39.0-51.0) % Neut % (Auto) (16.0-70.0) % Lymph % (Auto) (9.0-44.0) % Neut # (Auto) (1.8-7.7) th/mm3 Lymph # (Auto) (1.0-4.8) th/mm3 [place] # (Auto) (0.0-0.9) th/mm3 Seg Neuts % (Manual) (16-70) % Band Neuts % (Manual) (0-6) % Lymphocytes % (Manual) (9-44) % Abs Neuts (Manual) (1.8-7.7) th/mm3 PT 24.1 H (9.8-11.6) sec Chloride (98-107) meq/L BUN (7-18) mg/dL Creatinine (0.60-1.30) mg/dL Estimated GFR (>89) mL/min POC Glucose 278 H (68-110) mg/dl Random Glucose (74-106) mg/dL Lactic Acid (0.4-2.0) mmol/L Calcium (8.5-10.1) mg/dL Troponin I (0.02-0.05) ng/mL B-Natriuretic Peptide 469 H (0-100) pg/mL Albumin (3.4-5.0) g/dL Urine Clarity (Clear) Urine Urobilinogen (Less than 2) mg/dL Ur Leukocyte Esterase (Negative) Urine RBC (0-3) /hpf Urine WBC (0-5) /hpf Urine WBC Clumps (None) Triple Phos Crystals (None) /hpf Amorphous Sediment (None) /hpf Urine Bacteria (None) /hpf Urine Mucus (Occasional) /lpf 01/04/18 Range/Units 11:59 WBC (4.0-11.0) th/mm3 RBC (4.50-5.90) mil/mm3 Hgb (13.0-17.0) gm/dL Hct (39.0-51.0) % Neut % (Auto) (16.0-70.0) % Lymph % (Auto) (9.0-44.0) % Neut # (Auto) (1.8-7.7) th/mm3 Lymph # (Auto) (1.0-4.8) th/mm3 [place] # (Auto) (0.0-0.9) th/mm3 Seg Neuts % (Manual) (16-70) % Band Neuts % (Manual) (0-6) % Lymphocytes % (Manual) (9-44) % Abs Neuts (Manual) (1.8-7.7) th/mm3 PT (9.8-11.6) sec Chloride (98-107) meq/L BUN (7-18) mg/dL Creatinine (0.60-1.30) mg/dL Estimated GFR (>89) mL/min POC Glucose 317 H (68-110) mg/dl Random Glucose (74-106) mg/dL Lactic Acid (0.4-2.0) mmol/L Calcium (8.5-10.1) mg/dL Troponin I (0.02-0.05) ng/mL B-Natriuretic Peptide (0-100) pg/mL Albumin (3.4-5.0) g/dL Urine Clarity (Clear) Urine Urobilinogen (Less than 2) mg/dL Ur Leukocyte Esterase (Negative) Urine RBC (0-3) /hpf Urine WBC (0-5) /hpf Urine WBC Clumps (None) Triple Phos Crystals (None) /hpf Amorphous Sediment (None) /hpf Urine Bacteria (None) /hpf Urine Mucus (Occasional) /lpf Short CBC 01/04/18 Range/Units 05:23 WBC 18.0 H (4.0-11.0) th/mm3 Hgb 12.1 L D (13.0-17.0) gm/dL Hct 36.5 L (39.0-51.0) % Plt Count 195 D (150-450) th/mm3 BMP 01/04/18 05:23 Sodium 143 Potassium 3.5 Chloride 109 H Carbon Dioxide 25.5 BUN 38 H Creatinine 1.92 H Calcium 8.2 L Cardiac Enzymes 01/03/18 01/03/18 Range/Units 17:40 22:56 Troponin I 0.14 H 0.11 H (0.02-0.05) ng/mL Liver Function 01/04/18 Range/Units 05:23 Total Bilirubin 0.4 (0.2-1.0) mg/dL AST 15 (15-37) U/L ALT 18 (12-78) U/L Alkaline Phosphatase 56 (45-117) U/L Albumin 2.9 L (3.4-5.0) g/dL Urine 01/03/18 Range/Units 11:45 Urine Color Y[place] (Yellw/Straw) Urine Clarity Cloudy H (Clear) Urine pH 8.0 (5.0-8.5) Ur Specific [place] 1.014 (1.002-1.035) Urine Protein 500 or greater (Neg-Trace) mg/dL Urine Glucose (UA) Negative (Negative) mg/dL <Lisa Garber - 01/04/18 12:25> Abnormal lab results 01/03/18 01/03/18 01/03/18 Range/Units 11:10 11:20 11:20 WBC 15.1 H (4.0-11.0) th/mm3 MCH 26.9 L (27.0-34.0) pg Neut % (Auto) 85.9 H (16.0-70.0) % Lymph % (Auto) 7.3 L (9.0-44.0) % Neut # (Auto) 13.0 H (1.8-7.7) th/mm3 PT 19.9 H (9.8-11.6) sec APTT 22.4 L (24.3-30.1) sec ABG pH 7.52 H* (7.380-7.420) ABG pCO2 26 L (38-42) mmHg ABG HCO3 21 L (22-26) mmol/L Carbon Dioxide (21.0-32.0) meq/L BUN (7-18) mg/dL Creatinine (0.60-1.30) mg/dL Estimated GFR (>89) mL/min Random Glucose (74-106) mg/dL Lactic Acid (0.4-2.0) mmol/L Calcium (8.5-10.1) mg/dL Troponin I (0.02-0.05) ng/mL B-Natriuretic Peptide (0-100) pg/mL Albumin (3.4-5.0) g/dL Urine Clarity (Clear) Urine Urobilinogen (Less than 2) mg/dL Ur Leukocyte Esterase (Negative) Urine RBC (0-3) /hpf Urine WBC (0-5) /hpf Urine WBC Clumps (None) Triple Phos Crystals (None) /hpf Amorphous Sediment (None) /hpf Urine Bacteria (None) /hpf Urine Mucus (Occasional) /lpf 01/03/18 01/03/18 01/03/18 Range/Units 11:20 11:20 11:20 WBC (4.0-11.0) th/mm3 MCH (27.0-34.0) pg Neut % (Auto) (16.0-70.0) % Lymph % (Auto) (9.0-44.0) % Neut # (Auto) (1.8-7.7) th/mm3 PT (9.8-11.6) sec APTT (24.3-30.1) sec ABG pH (7.380-7.420) ABG pCO2 (38-42) mmHg ABG HCO3 (22-26) mmol/L Carbon Dioxide 20.2 L (21.0-32.0) meq/L BUN 34 H (7-18) mg/dL Creatinine 1.91 H (0.60-1.30) mg/dL Estimated GFR 34 L (>89) mL/min Random Glucose 199 H (74-106) mg/dL Lactic Acid 2.6 H (0.4-2.0) mmol/L Calcium 8.2 L (8.5-10.1) mg/dL Troponin I 0.12 H (0.02-0.05) ng/mL B-Natriuretic Peptide 270 H (0-100) pg/mL Albumin 3.0 L (3.4-5.0) g/dL Urine Clarity (Clear) Urine Urobilinogen (Less than 2) mg/dL Ur Leukocyte Esterase (Negative) Urine RBC (0-3) /hpf Urine WBC (0-5) /hpf Urine WBC Clumps (None) Triple Phos Crystals (None) /hpf Amorphous Sediment (None) /hpf Urine Bacteria (None) /hpf Urine Mucus (Occasional) /lpf 01/03/18 Range/Units 11:45 WBC (4.0-11.0) th/mm3 MCH (27.0-34.0) pg Neut % (Auto) (16.0-70.0) % Lymph % (Auto) (9.0-44.0) % Neut # (Auto) (1.8-7.7) th/mm3 PT (9.8-11.6) sec APTT (24.3-30.1) sec ABG pH (7.380-7.420) ABG pCO2 (38-42) mmHg ABG HCO3 (22-26) mmol/L Carbon Dioxide (21.0-32.0) meq/L BUN (7-18) mg/dL Creatinine (0.60-1.30) mg/dL Estimated GFR (>89) mL/min Random Glucose (74-106) mg/dL Lactic Acid (0.4-2.0) mmol/L Calcium (8.5-10.1) mg/dL Troponin I (0.02-0.05) ng/mL B-Natriuretic Peptide (0-100) pg/mL Albumin (3.4-5.0) g/dL Urine Clarity Cloudy H (Clear) Urine Urobilinogen 2.0 H (Less than 2) mg/dL Ur Leukocyte Esterase Small H (Negative) Urine RBC 4 H (0-3) /hpf Urine WBC 22 H (0-5) /hpf Urine WBC Clumps Rare H (None) Triple Phos Crystals Many H (None) /hpf Amorphous Sediment Many H (None) /hpf Urine Bacteria Many H (None) /hpf Urine Mucus Few H (Occasional) /lpf Short CBC 01/03/18 Range/Units 11:20 WBC 15.1 H (4.0-11.0) th/mm3 Hgb 14.2 (13.0-17.0) gm/dL Hct 43.6 (39.0-51.0) % Plt Count 300 (150-450) th/mm3 BMP 01/03/18 11:20 Sodium 140 Potassium 4.0 Chloride 107 Carbon Dioxide 20.2 L BUN 34 H Creatinine 1.91 H Calcium 8.2 L Cardiac Enzymes 01/03/18 Range/Units 11:20 Total Creatine Kinase 207 (39-308) U/L CK-MB (CK-2) 2.9 (0.5-3.6) ng/mL Troponin I 0.12 H (0.02-0.05) ng/mL Liver Function 01/03/18 Range/Units 11:20 Total Bilirubin 0.6 (0.2-1.0) mg/dL AST 15 (15-37) U/L ALT 21 (12-78) U/L Alkaline Phosphatase 74 (45-117) U/L Albumin 3.0 L (3.4-5.0) g/dL Urine 01/03/18 Range/Units 11:45 Urine Color Yumiko (Yellw/Straw) Urine Clarity Cloudy H (Clear) Urine pH 8.0 (5.0-8.5) Ur Specific Richardson 1.014 (1.002-1.035) Urine Protein 500 or greater (Neg-Trace) mg/dL Urine Glucose (UA) Negative (Negative) mg/dL <Carlota Grande - 01/03/18 13:24> - Imaging Impressions Chest CTA 01/03/18 12:04 CONCLUSION: 1. No evidence of pulmonary emboli. 2. Lingula and left lower lobe infiltrate most characteristic of pneumonia. 3. Small focal area of abnormal opacity in the right middle lobe as well. 4. Underlying emphysema. <Lisa Garber - 01/04/18 12:25> Impressions Chest X-Ray 01/03/18 10:58 CONCLUSION: Patchy infiltrate in the left perihilar region and left lung base most characteristic of pneumonia. Chest CTA 01/03/18 12:04 CONCLUSION: 1. No evidence of pulmonary emboli. 2. Lingula and left lower lobe infiltrate most characteristic of pneumonia. 3. Small focal area of abnormal opacity in the right middle lobe as well. 4. Underlying emphysema. <Carlota Grande - 01/03/18 13:24> Caprini VTE Risk Assessment Caprini VTE Risk Assessment: No/Low Risk (score <= 1) <Carlota Grande - 01/04 03:10> Caprini Risk Assessment Model: Point Value = 1 Point Value = 2 Point Value = 3 Point Value = 5 Age 41-60 Minor surgery BMI > 25 kg/m2 Swollen legs Varicose veins or History of unexplained or recurrent spontaneous Oral contraceptives or hormone replacement Sepsis (< 1 month) Serious lung disease, including pneumonia (< 1 month) Abnormal pulmonary function Acute myocardial infarction Congestive heart failure (< 1 month) History of inflammatory bowel disease Medical patient at bed rest Age 61-74 Arthroscopic surgery Major open surgery (> 45 min) Laparoscopic surgery (> 45 min) Malignancy Confined to bed (> 72 hours) Immobilizing plaster cast Central venous access Age >= 75 History of VTE Family history of VTE Factor V Leiden Prothrombin [id number] Lupus anticoagulant Anticardiolipin antibodies Elevated serum homocysteine Heparin-induced thrombocytopenia Other congenital or acquired thrombophilia Stroke (< 1 month) Elective arthroplasty Hip, pelvis, or leg fracture Acute spinal cord injury (< 1 month) <Lisa Garber - 01/04/18 12:25> Point Value = 1 Point Value = 2 Point Value = 3 Point Value = 5 Age 41-60 Minor surgery BMI > 25 kg/m2 Swollen legs Varicose veins or History of unexplained or recurrent spontaneous Oral contraceptives or hormone replacement Sepsis (< 1 month) Serious lung disease, including pneumonia (< 1 month) Abnormal pulmonary function Acute myocardial infarction Congestive heart failure (< 1 month) History of inflammatory bowel disease Medical patient at bed rest Age 61-74 Arthroscopic surgery Major open surgery (> 45 min) Laparoscopic surgery (> 45 min) Malignancy Confined to bed (> 72 hours) Immobilizing plaster cast Central venous access Age >= 75 History of VTE Family history of VTE Factor V Leiden Prothrombin [id number] Lupus anticoagulant Anticardiolipin antibodies Elevated serum homocysteine Heparin-induced thrombocytopenia Other congenital or acquired thrombophilia Stroke (< 1 month) Elective arthroplasty Hip, pelvis, or leg fracture Acute spinal cord injury (< 1 month) <Carlota Grande - 01/03/18 13:24> Prophylaxis Regimen: Total Risk Factor Score Risk Level Prophylaxis Regimen 0-1 Low Early ambulation 2 Moderate Order ONE of the following: *Sequential Compression Device (SCD) *Heparin 5000 units SQ BID 3-4 Higher Order ONE of the following medications: *Heparin 5000 units SQ TID *Enoxaparin/Lovenox 40 mg SQ daily (WT < 150 kg, CrCl > 30 mL/min) *Enoxaparin/Lovenox 30 mg SQ daily (WT < 150 kg, CrCl > 10-29 mL/min) *Enoxaparin/Lovenox 30 mg SQ BID (WT < 150 kg, CrCl > 30 mL/min) AND/OR *Sequential Compression Device (SCD) 5 or more Highest Order ONE of the following medications: *Heparin 5000 units SQ TID (Preferred with Epidurals) *Enoxaparin/Lovenox 40 mg SQ daily (WT < 150 kg, CrCl > 30 mL/min) *Enoxaparin/Lovenox 30 mg SQ daily (WT < 150 kg, CrCl > 10-29 mL/min) *Enoxaparin/Lovenox 30 mg SQ BID (WT < 150 kg, CrCl > 30 mL/min) AND *Sequential Compression Device (SCD) <Lisa Gabrer - 01/04/18 12:25> Total Risk Factor Score Risk Level Prophylaxis Regimen 0-1 Low Early ambulation 2 Moderate Order ONE of the following: *Sequential Compression Device (SCD) *Heparin 5000 units SQ BID 3-4 Higher Order ONE of the following medications: *Heparin 5000 units SQ TID *Enoxaparin/Lovenox 40 mg SQ daily (WT < 150 kg, CrCl > 30 mL/min) *Enoxaparin/Lovenox 30 mg SQ daily (WT < 150 kg, CrCl > 10-29 mL/min) *Enoxaparin/Lovenox 30 mg SQ BID (WT < 150 kg, CrCl > 30 mL/min) AND/OR *Sequential Compression Device (SCD) 5 or more Highest Order ONE of the following medications: *Heparin 5000 units SQ TID (Preferred with Epidurals) *Enoxaparin/Lovenox 40 mg SQ daily (WT < 150 kg, CrCl > 30 mL/min) *Enoxaparin/Lovenox 30 mg SQ daily (WT < 150 kg, CrCl > 10-29 mL/min) *Enoxaparin/Lovenox 30 mg SQ BID (WT < 150 kg, CrCl > 30 mL/min) AND *Sequential Compression Device (SCD) <Carlota Grande - 01/03/18 13:24> Assessment and Plan - Assessment (1) Community acquired pneumonia Code(s): J18.9 - Pneumonia, unspecified organism Status: Acute (2) COPD (chronic obstructive pulmonary disease) Code(s): J44.9 - Chronic obstructive pulmonary disease, unspecified Status: Acute (3) Kidney disease, chronic, stage III (GFR 30-59 ml/min) Code(s): N18.3 - Chronic kidney disease, stage 3 (moderate) Status: Acute (4) Afib Code(s): I48.91 - Unspecified atrial fibrillation Status: Acute (5) Elevated troponin Code(s): R74.8 - Abnormal levels of other serum enzymes Status: Acute (6) Abnormal finding on urinalysis Code(s): R82.90 - Unspecified abnormal findings in urine Status: Acute (7) CAD (coronary artery disease) Code(s): I25.10 - Atherosclerotic heart disease of [place] coronary artery without angina pectoris Status: Acute (8) Diabetes Code(s): E11.9 - Type 2 diabetes mellitus without complications Status: Acute (9) CHF (congestive heart failure) Code(s): I50.9 - Heart failure, unspecified Status: Acute (10) Nutrition, metabolism, and development symptoms Code(s): R63.8 - Other symptoms and signs concerning food and fluid intake Status: Acute (11) DVT prophylaxis Status: Acute <JcarlosLisa - 01/04/18 12:25> (1) Community acquired pneumonia Code(s): J18.9 - Pneumonia, unspecified organism Status: Acute Plan: Shortness of breath on admission, history of COPD, no recent history of illness , 88% O2 on room air Tachycardic and tachypneic on admission, ABG alkalotic with a pH of 7.5, indicates hyperventilation Met SIRS criteria on admission leukocytosis 15, tachycardia 126, tachypnea 25 + source (pneumonia) = Sepsis Follow-up sputum Gram stain and culture Follow-up blood culture Follow-up Legionella urine antigen, pneumococcal urine antigen, flu A/B antigen Covering for strep pneumo, atypicals Start ceftriaxone and azithromycin, no indication for aspiration coverage We will plan on treating for 5-7 days for community-acquired pneumonia, will likely DC on Augmentin CTA: No evidence of pulmonary emboli, lingula and left lower lobe infiltrate most characteristic of pneumonia, small focal areas of abnormal opacity in the right middle lobe as well, underlying emphysema Chest x-ray: Patchy infiltrate in left perihilar region and left lung base, characteristic of pneumonia (2) COPD (chronic obstructive pulmonary disease) Code(s): J44.9 - Chronic obstructive pulmonary disease, unspecified Status: Acute Plan: Encourage patient to sit up in bed, ambulate when possible Oxygen nasal cannula, titrate to keep O2 sats over 92% ABG: PH 7.52, PCO2 26 Continue home Advair daily Continue duo nebs every 4 hours scheduled, albuterol 2.5 nebulizer as needed shortness of breath Status post Solu-Medrol 125 mg IV push 1 in the ED Solu-Medrol p.o. 3 times daily tomorrow, with plans for p.o. prednisone on discharge -Add Protonix due to steroid dosing Respiratory Acapella, incentive spirometer (3) Kidney disease, chronic, stage III (GFR 30-59 ml/min) Code(s): N18.3 - Chronic kidney disease, stage 3 (moderate) Status: Acute Plan: Creatinine 1.91 with history of CKD stage III, this is likely baseline although we have no baseline values to compare to f/u urine output Follow-up CMP in a.m. (4) Afib Code(s): I48.91 - Unspecified atrial fibrillation Status: Acute Plan: History of atrial fibrillation, INR goal between 2.0 and 3.0 Cardiac telemetry for monitoring Continue warfarin at 5 mg p.o. daily Add SCDs, continue to monitor coags daily (5) Elevated troponin Code(s): R74.8 - Abnormal levels of other serum enzymes Status: Acute Plan: Elevated troponin of 0.12 on admission --> 0.14 Patient denies any chest pain, currently asymptomatic Elevated troponin may be due to renal disease versus cardiac ischemia from pulmonary disease f/u troponin trend f/u EKG trend (6) Abnormal finding on urinalysis Code(s): R82.90 - Unspecified abnormal findings in urine Status: Acute Plan: UA: Small leukocyte esterase, many bacteria No urinary symptoms Follow-up urine culture Continue empirical antibiotics for CAP: Rocephin and azithromycin (7) CAD (coronary artery disease) Code(s): I25.10 - Atherosclerotic heart disease of [place] coronary artery without angina pectoris Status: Acute Plan: Continue daily baby aspirin ACS workup as above (8) Diabetes Code(s): E11.9 - Type 2 diabetes mellitus without complications Status: Acute Plan: Well-controlled per patient Hold glipizide 10 mg daily Low-dose sliding scale insulin for hospitalization (9) CHF (congestive heart failure) Code(s): I50.9 - Heart failure, unspecified Status: Acute Plan: Continue Lasix 20 mg daily with KCl supplementation Continue metoprolol 50 mg twice daily f/u BNP, procalcitonin (10) Nutrition, metabolism, and development symptoms Code(s): R63.8 - Other symptoms and signs concerning food and fluid intake Status: Acute Plan: Fluids: Encourage p.o. fluid Electrolytes: Follow-up BMP and replete as needed Nutrition: Heart healthy diet (11) DVT prophylaxis Status: Acute Plan: GI prophylaxis: Protonix daily for steroid use DVT prophylaxis: Continue warfarin, follow-up coags <Carlota Grande - 01/04/18 03:03> - Assessment and Plan 77-year-old male, past medical history of COPD, chronic kidney disease stage III , atrial fibrillation, coronary artery disease, diabetes, CHF presents with community-acquired pneumonia. <Carlota Grande - 01/04/18 03:10> - Attending Attestation Patient seen and examined on the afternoon of 01/03/18, discussed with resident team. I agree with assessment and management as documented and discussed with me. The patient has been seen and examined. The chart and all resident notes have been reviewed. I agree that inpatient care is appropriate and that a two midnight stay is expected for the reasons documented in the resident history and physical. I have discussed this with the resident and certify the resident s order for inpatient admission. Ethan Case is a 77yo gentleman with h/o COPD, a fib, CAD, CHF, and CKD stage III admitted for acute onset of SOB and chills. Work up revealed left sided pneumonia and bacteriuria. Pt reports breathing better at the time of my admission interview/exam. He still was requiring O2 supplementation by nasal cannula (does not use oxygen at home). Additional diagnosis: Sepsis: Pt meets sepsis criteria and has lactic acid elevation. Provide antibiotics as documented and ordered for community acquired pneumonia. <Lisa Garber - 01/04/18 12:25> <Carlota Grande - Last Filed: 01/04/18 03:03> (1) Community acquired pneumonia Qualifiers: Laterality: unspecified laterality Qualified Code(s): J18.9 - Pneumonia, unspecified organism <VecatarinaLisa - Last Filed: 01/04/18 12:25> (1) Community acquired pneumonia Qualifiers: Laterality: unspecified laterality Qualified Code(s): J18.9 - Pneumonia, unspecified organism <Carlota Grande - Last Filed: 01/04/18 03:03> (1) Community acquired pneumonia Qualifiers: Laterality: unspecified laterality Qualified Code(s): J18.9 - Pneumonia, unspecified organism <VeViviane elmoree - Last Filed: 01/04/18 12:25> (1) Community acquired pneumonia Qualifiers: Laterality: unspecified laterality Qualified Code(s): J18.9 - Pneumonia, unspecified organism
[2018-01-03] MEDS ORDERED: Temazepam 15 MG Capsule PO PRN (14:03)
[2018-01-03] MEDS ORDERED: Bisacodyl 10 MG Supp RECTAL PRN (14:03)
[2018-01-03] MEDS ORDERED: Azithromycin Inj 500 MG in Sodium Chlor 0.9% Inj 250 ML IV.SIG SCH (19:00)
[2018-01-03] MEDS: Metoprolol Tartrate 50 MG Tablet PO SCH (21:58)
[2018-01-03] MEDS: Pantoprazole Inj 40 MG Vial IV.PUSH SCH (21:59)
[2018-01-03] MEDS ORDERED: Dextrose 50% in Water 50 ML Vial IV.PUSH PRN (22:35)
[2018-01-03] MEDS: Insulin NovoLIN Regular Correctional Sugar Inj SQ SCH (23:32)
[2018-01-04] MEDS: Insulin NovoLIN Regular Correctional Sugar Inj SQ SCH ×5 (03:46→21:51)
[2018-01-04] MEDS: MethylPREDNISolone Sod Succinate Inj 40 MG/ML Vial IV.PUSH SCH ×3 (05:35→21:53)
[2018-01-04 06:56] LABS: Hematocrit 36.5 % (39.0-51.0); Hemoglobin 12.1 gm/dL (13.0-17.0); Lymph # (Auto) 0.9 th/mm3 (1.0-4.8); Mean Corpuscular HGB Conc 33.3 % (32.0-36.0); Mean Corpuscular Hemoglobin 27.4 pg (27.0-34.0); Mean Corpuscular Volume 82.3 fL (80.0-100.0); Mean Platelet Volume 9.2 fL (7.0-11.0); Mono # (Auto) 1.3 th/mm3 (0.0-0.9); Mono % (Auto) 7.1 % (0.0-8.0); Neut # (Auto) 15.8 th/mm3 (1.8-7.7); Neut % (Auto) 87.9 % (16.0-70.0); Platelet Count 195 th/mm3 (150-450); Red Blood Count 4.43 mil/mm3 (4.50-5.90); Red Cell Distribution Width 14.4 % (11.6-17.2)
[2018-01-04 07:02] LABS: INR 2.4 Ratio; Prothrombin Time 24.1 sec (9.8-11.6)
[2018-01-04 07:11] LABS: Alanine Aminotransferase 18 U/L (12-78); Albumin 2.9 g/dL (3.4-5.0); Anion Gap 9 meq/L (5-15); Aspartate Aminotransferase 15 U/L (15-37); Blood Urea Nitrogen 38 mg/dL (7-18); Calcium 8.2 mg/dL (8.5-10.1); Carbon Dioxide 25.5 meq/L (21.0-32.0); Chloride 109 meq/L (98-107); Glomerular Filtration Rate 34 mL/min (>89); Glucose,Random 225 mg/dL (74-106); Potassium 3.5 meq/L (3.5-5.1); Sodium 143 meq/L (136-145)
[2018-01-04 07:13] LABS: Alkaline Phosphatase 56 U/L (45-117); Total Protein 6.5 g/dL (6.4-8.2)
[2018-01-04 08:20] LABS: Lymphocytes 6 % (9-44); Monocytes 3 % (0-8)
[2018-01-04 08:21] LABS: Platelet Estimate Normal (Normal); Platelet Morphology Normal (Normal)
[2018-01-04] MEDS ORDERED: Furosemide 20 MG Tablet PO SCH (09:00)
[2018-01-04] MEDS: Ferrous Sulfate 325 MG Tablet PO SCH (09:47)
[2018-01-04] MEDS: Metoprolol Tartrate 50 MG Tablet PO SCH ×2 (09:47→21:51)
[2018-01-04] MEDS: Budesonide-Formoterol 160/4.5 MCG 6 GM Inhaler INH SCH ×2 (09:48→21:52)
--- NOTE | 2018-01-04 13:26 | P.PNFP ---
Subjective Interval history: Patient seen and examined this morning. No acute events overnight. Patient reports feeling much improved today. States his breathing has improved. Still on oxygen. Denies any chest pain. Cough and shortness of breath has improved. Denies any fever chills, abdominal pain, leg pain. Is wondering when he can go home. <LaurentmiracleTunde Rodriguez - 01/04/18 13:26> Results - Labs Result diagrams: 01/04/18 05:23 01/04/18 05:23 <Lisa Garber - 01/04/18 20:43> Abnormal lab results 01/03/18 01/03/18 01/03/18 Range/Units 11:45 21:25 22:56 WBC (4.0-11.0) th/mm3 RBC (4.50-5.90) mil/mm3 Hgb (13.0-17.0) gm/dL Hct (39.0-51.0) % Neut % (Auto) (16.0-70.0) % Lymph % (Auto) (9.0-44.0) % Neut # (Auto) (1.8-7.7) th/mm3 Lymph # (Auto) (1.0-4.8) th/mm3 [place] # (Auto) (0.0-0.9) th/mm3 Seg Neuts % (Manual) (16-70) % Band Neuts % (Manual) (0-6) % Lymphocytes % (Manual) (9-44) % Abs Neuts (Manual) (1.8-7.7) th/mm3 PT (9.8-11.6) sec Chloride (98-107) meq/L BUN (7-18) mg/dL Creatinine (0.60-1.30) mg/dL Estimated GFR (>89) mL/min POC Glucose 536 H* (68-110) mg/dl Random Glucose (74-106) mg/dL Calcium (8.5-10.1) mg/dL Troponin I 0.11 H (0.02-0.05) ng/mL B-Natriuretic Peptide (0-100) pg/mL Albumin (3.4-5.0) g/dL Procalcitonin (0.00-0.08) ng/mL Urine Clarity Cloudy H (Clear) Urine Urobilinogen 2.0 H (Less than 2) mg/dL Ur Leukocyte Esterase Small H (Negative) Urine RBC 4 H (0-3) /hpf Urine WBC 22 H (0-5) /hpf Urine WBC Clumps Rare H (None) Triple Phos Crystals Many H (None) /hpf Amorphous Sediment Many H (None) /hpf Urine Bacteria Many H (None) /hpf Urine Mucus Few H (Occasional) /lpf 01/03/18 01/04/18 01/04/18 Range/Units 23:19 03:36 05:23 WBC 18.0 H (4.0-11.0) th/mm3 RBC 4.43 L (4.50-5.90) mil/mm3 Hgb 12.1 L D (13.0-17.0) gm/dL Hct 36.5 L (39.0-51.0) % Neut % (Auto) 87.9 H (16.0-70.0) % Lymph % (Auto) 5.0 L (9.0-44.0) % Neut # (Auto) 15.8 H (1.8-7.7) th/mm3 Lymph # (Auto) 0.9 L (1.0-4.8) th/mm3 [place] # (Auto) 1.3 H (0.0-0.9) th/mm3 Seg Neuts % (Manual) 81 H (16-70) % Band Neuts % (Manual) 10 H (0-6) % Lymphocytes % (Manual) 6 L (9-44) % Abs Neuts (Manual) 16.4 H (1.8-7.7) th/mm3 PT (9.8-11.6) sec Chloride (98-107) meq/L BUN (7-18) mg/dL Creatinine (0.60-1.30) mg/dL Estimated GFR (>89) mL/min POC Glucose 454 H* 331 H (68-110) mg/dl Random Glucose (74-106) mg/dL Calcium (8.5-10.1) mg/dL Troponin I (0.02-0.05) ng/mL B-Natriuretic Peptide (0-100) pg/mL Albumin (3.4-5.0) g/dL Procalcitonin (0.00-0.08) ng/mL Urine Clarity (Clear) Urine Urobilinogen (Less than 2) mg/dL Ur Leukocyte Esterase (Negative) Urine RBC (0-3) /hpf Urine WBC (0-5) /hpf Urine WBC Clumps (None) Triple Phos Crystals (None) /hpf Amorphous Sediment (None) /hpf Urine Bacteria (None) /hpf Urine Mucus (Occasional) /lpf 01/04/18 01/04/18 01/04/18 Range/Units 05:23 05:23 05:23 WBC (4.0-11.0) th/mm3 RBC (4.50-5.90) mil/mm3 Hgb (13.0-17.0) gm/dL Hct (39.0-51.0) % Neut % (Auto) (16.0-70.0) % Lymph % (Auto) (9.0-44.0) % Neut # (Auto) (1.8-7.7) th/mm3 Lymph # (Auto) (1.0-4.8) th/mm3 [place] # (Auto) (0.0-0.9) th/mm3 Seg Neuts % (Manual) (16-70) % Band Neuts % (Manual) (0-6) % Lymphocytes % (Manual) (9-44) % Abs Neuts (Manual) (1.8-7.7) th/mm3 PT 24.1 H (9.8-11.6) sec Chloride 109 H (98-107) meq/L BUN 38 H (7-18) mg/dL Creatinine 1.92 H (0.60-1.30) mg/dL Estimated GFR 34 L (>89) mL/min POC Glucose (68-110) mg/dl Random Glucose 225 H (74-106) mg/dL Calcium 8.2 L (8.5-10.1) mg/dL Troponin I (0.02-0.05) ng/mL B-Natriuretic Peptide 469 H (0-100) pg/mL Albumin 2.9 L (3.4-5.0) g/dL Procalcitonin (0.00-0.08) ng/mL Urine Clarity (Clear) Urine Urobilinogen (Less than 2) mg/dL Ur Leukocyte Esterase (Negative) Urine RBC (0-3) /hpf Urine WBC (0-5) /hpf Urine WBC Clumps (None) Triple Phos Crystals (None) /hpf Amorphous Sediment (None) /hpf Urine Bacteria (None) /hpf Urine Mucus (Occasional) /lpf 01/04/18 01/04/18 01/04/18 Range/Units 05:23 09:40 11:59 WBC (4.0-11.0) th/mm3 RBC (4.50-5.90) mil/mm3 Hgb (13.0-17.0) gm/dL Hct (39.0-51.0) % Neut % (Auto) (16.0-70.0) % Lymph % (Auto) (9.0-44.0) % Neut # (Auto) (1.8-7.7) th/mm3 Lymph # (Auto) (1.0-4.8) th/mm3 [place] # (Auto) (0.0-0.9) th/mm3 Seg Neuts % (Manual) (16-70) % Band Neuts % (Manual) (0-6) % Lymphocytes % (Manual) (9-44) % Abs Neuts (Manual) (1.8-7.7) th/mm3 PT (9.8-11.6) sec Chloride (98-107) meq/L BUN (7-18) mg/dL Creatinine (0.60-1.30) mg/dL Estimated GFR (>89) mL/min POC Glucose 278 H 317 H (68-110) mg/dl Random Glucose (74-106) mg/dL Calcium (8.5-10.1) mg/dL Troponin I (0.02-0.05) ng/mL B-Natriuretic Peptide (0-100) pg/mL Albumin (3.4-5.0) g/dL Procalcitonin 32.26 H (0.00-0.08) ng/mL Urine Clarity (Clear) Urine Urobilinogen (Less than 2) mg/dL Ur Leukocyte Esterase (Negative) Urine RBC (0-3) /hpf Urine WBC (0-5) /hpf Urine WBC Clumps (None) Triple Phos Crystals (None) /hpf Amorphous Sediment (None) /hpf Urine Bacteria (None) /hpf Urine Mucus (Occasional) /lpf 01/04/18 Range/Units 16:54 WBC (4.0-11.0) th/mm3 RBC (4.50-5.90) mil/mm3 Hgb (13.0-17.0) gm/dL Hct (39.0-51.0) % Neut % (Auto) (16.0-70.0) % Lymph % (Auto) (9.0-44.0) % Neut # (Auto) (1.8-7.7) th/mm3 Lymph # (Auto) (1.0-4.8) th/mm3 [place] # (Auto) (0.0-0.9) th/mm3 Seg Neuts % (Manual) (16-70) % Band Neuts % (Manual) (0-6) % Lymphocytes % (Manual) (9-44) % Abs Neuts (Manual) (1.8-7.7) th/mm3 PT (9.8-11.6) sec Chloride (98-107) meq/L BUN (7-18) mg/dL Creatinine (0.60-1.30) mg/dL Estimated GFR (>89) mL/min POC Glucose 423 H (68-110) mg/dl Random Glucose (74-106) mg/dL Calcium (8.5-10.1) mg/dL Troponin I (0.02-0.05) ng/mL B-Natriuretic Peptide (0-100) pg/mL Albumin (3.4-5.0) g/dL Procalcitonin (0.00-0.08) ng/mL Urine Clarity (Clear) Urine Urobilinogen (Less than 2) mg/dL Ur Leukocyte Esterase (Negative) Urine RBC (0-3) /hpf Urine WBC (0-5) /hpf Urine WBC Clumps (None) Triple Phos Crystals (None) /hpf Amorphous Sediment (None) /hpf Urine Bacteria (None) /hpf Urine Mucus (Occasional) /lpf Short CBC 01/04/18 Range/Units 05:23 WBC 18.0 H (4.0-11.0) th/mm3 Hgb 12.1 L D (13.0-17.0) gm/dL Hct 36.5 L (39.0-51.0) % Plt Count 195 D (150-450) th/mm3 BMP 01/04/18 05:23 Sodium 143 Potassium 3.5 Chloride 109 H Carbon Dioxide 25.5 BUN 38 H Creatinine 1.92 H Calcium 8.2 L Cardiac Enzymes 01/03/18 Range/Units 22:56 Troponin I 0.11 H (0.02-0.05) ng/mL Liver Function 01/04/18 Range/Units 05:23 Total Bilirubin 0.4 (0.2-1.0) mg/dL AST 15 (15-37) U/L ALT 18 (12-78) U/L Alkaline Phosphatase 56 (45-117) U/L Albumin 2.9 L (3.4-5.0) g/dL Urine 01/03/18 Range/Units 11:45 Urine Color [place] (Yellw/Straw) Urine Clarity Cloudy H (Clear) Urine pH 8.0 (5.0-8.5) Ur Specific [place] 1.014 (1.002-1.035) Urine Protein 500 or greater (Neg-Trace) mg/dL Urine Glucose (UA) Negative (Negative) mg/dL <Viviane Garbere - 01/04/18 20:43> Abnormal lab results 01/03/18 01/03/18 01/03/18 Range/Units 15:13 17:40 21:25 WBC (4.0-11.0) th/mm3 RBC (4.50-5.90) mil/mm3 Hgb (13.0-17.0) gm/dL Hct (39.0-51.0) % Neut % (Auto) (16.0-70.0) % Lymph % (Auto) (9.0-44.0) % Neut # (Auto) (1.8-7.7) th/mm3 Lymph # (Auto) (1.0-4.8) th/mm3 [place] # (Auto) (0.0-0.9) th/mm3 Seg Neuts % (Manual) (16-70) % Band Neuts % (Manual) (0-6) % Lymphocytes % (Manual) (9-44) % Abs Neuts (Manual) (1.8-7.7) th/mm3 PT (9.8-11.6) sec Chloride (98-107) meq/L BUN (7-18) mg/dL Creatinine (0.60-1.30) mg/dL Estimated GFR (>89) mL/min POC Glucose 536 H* (68-110) mg/dl Random Glucose (74-106) mg/dL Lactic Acid 2.1 H (0.4-2.0) mmol/L Calcium (8.5-10.1) mg/dL Troponin I 0.14 H (0.02-0.05) ng/mL B-Natriuretic Peptide (0-100) pg/mL Albumin (3.4-5.0) g/dL 01/03/18 01/03/18 01/04/18 Range/Units 22:56 23:19 03:36 WBC (4.0-11.0) th/mm3 RBC (4.50-5.90) mil/mm3 Hgb (13.0-17.0) gm/dL Hct (39.0-51.0) % Neut % (Auto) (16.0-70.0) % Lymph % (Auto) (9.0-44.0) % Neut # (Auto) (1.8-7.7) th/mm3 Lymph # (Auto) (1.0-4.8) th/mm3 [place] # (Auto) (0.0-0.9) th/mm3 Seg Neuts % (Manual) (16-70) % Band Neuts % (Manual) (0-6) % Lymphocytes % (Manual) (9-44) % Abs Neuts (Manual) (1.8-7.7) th/mm3 PT (9.8-11.6) sec Chloride (98-107) meq/L BUN (7-18) mg/dL Creatinine (0.60-1.30) mg/dL Estimated GFR (>89) mL/min POC Glucose 454 H* 331 H (68-110) mg/dl Random Glucose (74-106) mg/dL Lactic Acid (0.4-2.0) mmol/L Calcium (8.5-10.1) mg/dL Troponin I 0.11 H (0.02-0.05) ng/mL B-Natriuretic Peptide (0-100) pg/mL Albumin (3.4-5.0) g/dL 01/04/18 01/04/18 01/04/18 Range/Units 05:23 05:23 05:23 WBC 18.0 H (4.0-11.0) th/mm3 RBC 4.43 L (4.50-5.90) mil/mm3 Hgb 12.1 L D (13.0-17.0) gm/dL Hct 36.5 L (39.0-51.0) % Neut % (Auto) 87.9 H (16.0-70.0) % Lymph % (Auto) 5.0 L (9.0-44.0) % Neut # (Auto) 15.8 H (1.8-7.7) th/mm3 Lymph # (Auto) 0.9 L (1.0-4.8) th/mm3 [place] # (Auto) 1.3 H (0.0-0.9) th/mm3 Seg Neuts % (Manual) 81 H (16-70) % Band Neuts % (Manual) 10 H (0-6) % Lymphocytes % (Manual) 6 L (9-44) % Abs Neuts (Manual) 16.4 H (1.8-7.7) th/mm3 PT 24.1 H (9.8-11.6) sec Chloride 109 H (98-107) meq/L BUN 38 H (7-18) mg/dL Creatinine 1.92 H (0.60-1.30) mg/dL Estimated GFR 34 L (>89) mL/min POC Glucose (68-110) mg/dl Random Glucose 225 H (74-106) mg/dL Lactic Acid (0.4-2.0) mmol/L Calcium 8.2 L (8.5-10.1) mg/dL Troponin I (0.02-0.05) ng/mL B-Natriuretic Peptide (0-100) pg/mL Albumin 2.9 L (3.4-5.0) g/dL 01/04/18 01/04/18 01/04/18 Range/Units 05:23 09:40 11:59 WBC (4.0-11.0) th/mm3 RBC (4.50-5.90) mil/mm3 Hgb (13.0-17.0) gm/dL Hct (39.0-51.0) % Neut % (Auto) (16.0-70.0) % Lymph % (Auto) (9.0-44.0) % Neut # (Auto) (1.8-7.7) th/mm3 Lymph # (Auto) (1.0-4.8) th/mm3 [place] # (Auto) (0.0-0.9) th/mm3 Seg Neuts % (Manual) (16-70) % Band Neuts % (Manual) (0-6) % Lymphocytes % (Manual) (9-44) % Abs Neuts (Manual) (1.8-7.7) th/mm3 PT (9.8-11.6) sec Chloride (98-107) meq/L BUN (7-18) mg/dL Creatinine (0.60-1.30) mg/dL Estimated GFR (>89) mL/min POC Glucose 278 H 317 H (68-110) mg/dl Random Glucose (74-106) mg/dL Lactic Acid (0.4-2.0) mmol/L Calcium (8.5-10.1) mg/dL Troponin I (0.02-0.05) ng/mL B-Natriuretic Peptide 469 H (0-100) pg/mL Albumin (3.4-5.0) g/dL Short CBC 01/04/18 Range/Units 05:23 WBC 18.0 H (4.0-11.0) th/mm3 Hgb 12.1 L D (13.0-17.0) gm/dL Hct 36.5 L (39.0-51.0) % Plt Count 195 D (150-450) th/mm3 BMP 01/04/18 05:23 Sodium 143 Potassium 3.5 Chloride 109 H Carbon Dioxide 25.5 BUN 38 H Creatinine 1.92 H Calcium 8.2 L Cardiac Enzymes 01/03/18 01/03/18 Range/Units 17:40 22:56 Troponin I 0.14 H 0.11 H (0.02-0.05) ng/mL Liver Function 01/04/18 Range/Units 05:23 Total Bilirubin 0.4 (0.2-1.0) mg/dL AST 15 (15-37) U/L ALT 18 (12-78) U/L Alkaline Phosphatase 56 (45-117) U/L Albumin 2.9 L (3.4-5.0) g/dL <Tunde Little - 01/04/18 13:26> - Imaging Chest X-Ray 01/03/18 10:58 CONCLUSION: Patchy infiltrate in the left perihilar region and left lung base most characteristic of pneumonia. Chest CTA 01/03/18 12:04 CONCLUSION: 1. No evidence of pulmonary emboli. 2. Lingula and left lower lobe infiltrate most characteristic of pneumonia. 3. Small focal area of abnormal opacity in the right middle lobe as well. 4. Underlying emphysema. <Tunde Little - 01/04/18 13:26> Physical Exam Vital signs: Vital Signs 01/03/18 21:00 01/03/18 22:00 01/03/18 23:00 Temperature Pulse Rate 96 H 94 H 74 Respiratory Rate Blood Pressure Pulse Oximetry 01/03/18 23:35 01/04/18 00:00 01/04/18 01:00 Temperature Pulse Rate 82 82 80 Respiratory Rate 16 16 Blood Pressure 116/69 Pulse Oximetry 97 01/04/18 02:00 01/04/18 03:00 01/04/18 03:46 Temperature Pulse Rate 76 87 83 Respiratory Rate 16 Blood Pressure Pulse Oximetry 01/04/18 04:00 01/04/18 05:00 01/04/18 06:00 Temperature Pulse Rate 76 72 70 Respiratory Rate 16 Blood Pressure 103/64 Pulse Oximetry 97 01/04/18 07:00 01/04/18 08:30 01/04/18 09:00 Temperature 98.4 F Pulse Rate 82 76 96 H Respiratory Rate 20 20 Blood Pressure 96/52 L Pulse Oximetry 95 01/04/18 10:00 01/04/18 11:00 01/04/18 12:00 Temperature 98.7 F Pulse Rate 94 H 98 H 78 Respiratory Rate 20 Blood Pressure 96/58 L Pulse Oximetry 94 L 01/04/18 12:05 01/04/18 13:00 01/04/18 14:00 Temperature Pulse Rate 74 92 H 87 Respiratory Rate 20 Blood Pressure Pulse Oximetry 01/04/18 15:00 01/04/18 16:00 01/04/18 16:29 Temperature 98.1 F Pulse Rate 89 79 83 Respiratory Rate 16 20 Blood Pressure 131/75 Pulse Oximetry 98 01/04/18 17:00 01/04/18 18:00 01/04/18 20:41 Temperature Pulse Rate 84 84 95 H Respiratory Rate 16 Blood Pressure Pulse Oximetry 95 Intake & Output 01/04/18 01/04/18 01/05/18 06:59 18:59 06:59 Intake Total 840 / 840 2930 / 2930 Output Total 1100 / 1100 500 / 500 Balance -260 / -260 2430 / 2430 Weight 90 kg Intake: IV 600 / 600 1950 / 1950 Azithromycin Inj 500 MG In NS 250 / 250 Inj 250 ML @ 250 mls/hr IV.SIG Q24H STEPHANIE Rx#:[id number] Rocephin Inj 1,000 MG In NS Inj 100 / 100 100 ML @ 200 mls/hr IV.SIG Q24H STEPHANIE Rx#:[id number] Oral 240 / 240 980 / 980 Output: Urine 500 / 500 Urine Amount (Stoma) 1100 / 1100 Nephrostomy Tube 1100 / 1100 Other: Date of Last Bowel Movement 01/02/18 # Bowel Movements 1 <Lisa Garber - 01/04/18 20:43> Vital Signs 01/03/18 13:41 01/03/18 14:34 01/03/18 16:00 Temperature 99.2 F 98.8 F Pulse Rate 122 H 101 H Respiratory Rate 25 H 20 Blood Pressure 132/65 118/74 Pulse Oximetry 94 L 97 01/03/18 19:00 01/03/18 19:32 01/03/18 20:00 Temperature 98.4 F Pulse Rate 91 H 81 92 H Respiratory Rate 16 20 Blood Pressure 115/69 Pulse Oximetry 96 97 01/03/18 21:00 01/03/18 22:00 01/03/18 23:00 Temperature Pulse Rate 96 H 94 H 74 Respiratory Rate Blood Pressure Pulse Oximetry 01/03/18 23:35 01/04/18 00:00 01/04/18 01:00 Temperature Pulse Rate 82 82 80 Respiratory Rate 16 16 Blood Pressure 116/69 Pulse Oximetry 97 01/04/18 02:00 01/04/18 03:00 01/04/18 03:46 Temperature Pulse Rate 76 87 83 Respiratory Rate 16 Blood Pressure Pulse Oximetry 01/04/18 04:00 01/04/18 05:00 01/04/18 06:00 Temperature Pulse Rate 76 72 70 Respiratory Rate 16 Blood Pressure 103/64 Pulse Oximetry 97 01/04/18 07:00 01/04/18 08:30 01/04/18 09:00 Temperature Pulse Rate 86 76 96 H Respiratory Rate 20 Blood Pressure Pulse Oximetry 01/04/18 10:00 01/04/18 11:00 01/04/18 12:05 Temperature Pulse Rate 94 H 98 H 74 Respiratory Rate 20 Blood Pressure Pulse Oximetry Intake & Output 01/03/18 01/04/18 01/04/18 18:59 06:59 18:59 Intake Total 240 / 240 840 / 840 1949 Output Total 100 / 100 1100 / 1100 Balance 140 / 140 -260 / -260 1949 Weight 96.615 kg 90 kg Intake: IV 600 / 600 1949 Azithromycin Inj 500 MG In NS 250 / 250 Inj 250 ML @ 250 mls/hr IV.SIG Q24H STEPHANIE Rx#:[id number] Rocephin Inj 1,000 MG In NS Inj 100 / 100 100 ML @ 200 mls/hr IV.SIG Q24H STEPHANIE Rx#:[id number] Oral 240 / 240 240 / 240 Output: Urine Amount (Stoma) 100 / 100 1100 / 1100 Nephrostomy Tube 100 / 100 1100 / 1100 Other: # Bowel Movements 1 <Tunde Little - 01/04/18 13:26> Narrative: GENERAL: male laying down in bed. No acute distress SKIN: Warm and dry. NECK: Trachea midline. No JVD. CARDIOVASCULAR: Regular rate and rhythm. RESPIRATORY: No accessory muscle use. Coarse breath sounds throughout. GASTROINTESTINAL: Abdomen soft, non-tender, nondistended. Hepatic and splenic margins not palpable. MUSCULOSKELETAL: Extremities without clubbing, cyanosis, or edema. No obvious deformities. NEUROLOGICAL: Awake and alert. No obvious cranial nerve deficits. Motor grossly within normal limits. PSYCHIATRIC: Appropriate mood and affect; insight and judgment normal. <Tunde Little - 01/04/18 13:26> Assessment and Plan - Assessment (1) Community acquired pneumonia Code(s): J18.9 - Pneumonia, unspecified organism Status: Acute (2) COPD (chronic obstructive pulmonary disease) Code(s): J44.9 - Chronic obstructive pulmonary disease, unspecified Status: Acute (3) Kidney disease, chronic, stage III (GFR 30-59 ml/min) Code(s): N18.3 - Chronic kidney disease, stage 3 (moderate) Status: Acute (4) Afib Code(s): I48.91 - Unspecified atrial fibrillation Status: Acute (5) Elevated troponin Code(s): R74.8 - Abnormal levels of other serum enzymes Status: Acute (6) Abnormal finding on urinalysis Code(s): R82.90 - Unspecified abnormal findings in urine Status: Acute (7) CAD (coronary artery disease) Code(s): I25.10 - Atherosclerotic heart disease of [place] coronary artery without angina pectoris Status: Acute (8) Diabetes Code(s): E11.9 - Type 2 diabetes mellitus without complications Status: Acute (9) CHF (congestive heart failure) Code(s): I50.9 - Heart failure, unspecified Status: Acute (10) Nutrition, metabolism, and development symptoms Code(s): R63.8 - Other symptoms and signs concerning food and fluid intake Status: Acute (11) DVT prophylaxis Status: Acute <Lisa Garber - 01/04/18 20:43> (1) Community acquired pneumonia Code(s): J18.9 - Pneumonia, unspecified organism Status: Acute Plan: Shortness of breath on admission, history of COPD, no recent history of illness , 88% O2 on room air Tachycardic and tachypneic on admission, ABG alkalotic with a pH of 7.5, indicates hyperventilation Met SIRS criteria on admission leukocytosis 15, tachycardia 126, tachypnea 25 + source (pneumonia) = Sepsis Urine strep pneumococcal urine antigen: positive Blood cultures no growth in 1 day Legionella urine, flu negative Continue ceftriaxone (01/03 - ) Will stop azithromycin due to positive strep pneumo We will plan on treating for 5-7 days for community-acquired pneumonia, will likely DC on Augmentin CTA: No evidence of pulmonary emboli, lingula and left lower lobe infiltrate most characteristic of pneumonia, small focal areas of abnormal opacity in the right middle lobe as well, underlying emphysema Chest x-ray: Patchy infiltrate in left perihilar region and left lung base, characteristic of pneumonia (2) COPD (chronic obstructive pulmonary disease) Code(s): J44.9 - Chronic obstructive pulmonary disease, unspecified Status: Acute Plan: Encourage patient to sit up in bed, ambulate when possible Oxygen nasal cannula, titrate to keep O2 sats over 92% ABG: PH 7.52, PCO2 26 Continue home Advair daily Continue duo nebs every 4 hours scheduled, albuterol 2.5 nebulizer as needed shortness of breath Status post Solu-Medrol 125 mg IV push 1 in the ED Solu-Medrol p.o. 3 times daily tomorrow, with plans for p.o. prednisone on discharge Protonix due to steroid dosing Respiratory Acapella, incentive spirometer (3) Kidney disease, chronic, stage III (GFR 30-59 ml/min) Code(s): N18.3 - Chronic kidney disease, stage 3 (moderate) Status: Acute Plan: Creatinine 1.91 with history of CKD stage III, this is likely baseline although we have no baseline values to compare to f/u urine output Follow CMP (4) Afib Code(s): I48.91 - Unspecified atrial fibrillation Status: Acute Plan: History of atrial fibrillation, INR goal between 2.0 and 3.0 Cardiac telemetry for monitoring Will lower dose of warfarin to 2.5mg daily while on antibiotics SCDs, continue to monitor coags daily (5) Elevated troponin Code(s): R74.8 - Abnormal levels of other serum enzymes Status: Acute Plan: Elevated troponin of 0.12 on admission --> 0.14 --> 0.11 Patient denies any chest pain, currently asymptomatic Elevated troponin may be due to renal disease vs pulmonary disease (6) Abnormal finding on urinalysis Code(s): R82.90 - Unspecified abnormal findings in urine Status: Acute Plan: UA: Small leukocyte esterase, many bacteria No urinary symptoms Follow-up urine culture Continue empirical antibiotics for CAP: Rocephin (7) CAD (coronary artery disease) Code(s): I25.10 - Atherosclerotic heart disease of [place] coronary artery without angina pectoris Status: Acute Plan: Continue daily baby aspirin ACS workup negative (8) Diabetes Code(s): E11.9 - Type 2 diabetes mellitus without complications Status: Acute Plan: Well-controlled per patient Hold glipizide 10 mg daily Continue home Lantus 10U daily Low-dose sliding scale insulin for hospitalization Monitor accu-checks (9) CHF (congestive heart failure) Code(s): I50.9 - Heart failure, unspecified Status: Acute Plan: Continue home Lasix 40 mg daily with KCl supplementation Continue metoprolol 50 mg twice daily f/u BNP, procalcitonin (10) Nutrition, metabolism, and development symptoms Code(s): R63.8 - Other symptoms and signs concerning food and fluid intake Status: Acute Plan: Fluids: Encourage p.o. fluid Electrolytes: Follow-up BMP and replete as needed Nutrition: Heart healthy diet (11) DVT prophylaxis Status: Acute Plan: GI prophylaxis: Protonix daily for steroid use DVT prophylaxis: Continue warfarin, follow-up coags <Tunde Little - 01/04/18 13:12> - Assessment and Plan 77-year-old male, past medical history of COPD, chronic kidney disease stage III , atrial fibrillation, coronary artery disease, diabetes, CHF presents with community-acquired pneumonia. <Tunde Little - 01/04/18 13:26> - Attending Attestation Patient seen, examined, and discussed this morning with resident team. I agree with assessment and management as documented with me. PT reports he is feeling better. is at the bedside. He continues to require oxygen - able to remove O2 during exam, with sats 93%. Lactic acid improved to 2.1 - discussed with pt and that this is still a little elevated. <Lisa Garber - 01/04/18 20:43> <Tunde Little J - Last Filed: 01/04/18 13:12> (1) Community acquired pneumonia Qualifiers: Laterality: unspecified laterality Qualified Code(s): J18.9 - Pneumonia, unspecified organism <Lisa Garber - Last Filed: 01/04/18 20:43> (1) Community acquired pneumonia Qualifiers: Laterality: unspecified laterality Qualified Code(s): J18.9 - Pneumonia, unspecified organism <Tunde Little - Last Filed: 01/04/18 13:12> (1) Community acquired pneumonia Qualifiers: Laterality: unspecified laterality Qualified Code(s): J18.9 - Pneumonia, unspecified organism <Lisa Garber - Last Filed: 01/04/18 20:43> (1) Community acquired pneumonia Qualifiers: Laterality: unspecified laterality Qualified Code(s): J18.9 - Pneumonia, unspecified organism
[2018-01-04] MEDS ORDERED: Insulin Detemir Inj 1,000 UNIT/10 ML Vial SQ SCH (21:00)
[2018-01-04] MEDS: Pantoprazole Inj 40 MG Vial IV.PUSH SCH (21:52)
--- NOTE | 2018-01-04 23:56 | ECG ---
Date Performed: 01/04/2018 Time Performed: 00:12:40 PTAGE: 77 years EKG: Atrial fibrillation Left axis deviation RBBB with left anterior fascicular block Inferior/l ateral T wave changes are nonspecific Abnormal ECG Compared to PREVIOUS TRACING , rate has decreased DOCTOR: Humphrey Borden Interpretating Date/Time 01/04/2018 23:54:24
--- NOTE | 2018-01-05 00:30 | ECG ---
Date Performed: 01/03/2018 Time Performed: 10:54:02 PTAGE: 77 years EKG: PROBABLE ECTOPIC ATRIAL TACHYCARDIA PATTERN CONSISTENT WITH PULMONARY DISEASE INFERIOR MYOC ARDIAL INFARCTION ABNORMAL ECG NO PREVIOUS TRACING DOCTOR: Humphrey Borden Interpretating Date/Time 01/05/2018 00:29:50
[2018-01-05] MEDS: Insulin NovoLIN Regular Correctional Sugar Inj SQ SCH ×2 (05:52→10:10)
[2018-01-05 06:41] LABS: INR 2.1 Ratio
[2018-01-05 06:50] LABS: Baso % (Auto) 0.1 % (0.0-2.0); Hematocrit 35.7 % (39.0-51.0); Hemoglobin 11.9 gm/dL (13.0-17.0); Lymph # (Auto) 0.7 th/mm3 (1.0-4.8); Lymph % (Auto) 4.5 % (9.0-44.0); Mean Corpuscular HGB Conc 33.5 % (32.0-36.0); Mean Corpuscular Hemoglobin 27.6 pg (27.0-34.0); Mean Corpuscular Volume 82.4 fL (80.0-100.0); Mean Platelet Volume 8.9 fL (7.0-11.0); Mono # (Auto) 0.6 th/mm3 (0.0-0.9); Mono % (Auto) 4.1 % (0.0-8.0); Neut # (Auto) 13.3 th/mm3 (1.8-7.7); Neut % (Auto) 91.3 % (16.0-70.0); Platelet Count 196 th/mm3 (150-450); Red Blood Count 4.33 mil/mm3 (4.50-5.90); Red Cell Distribution Width 14.2 % (11.6-17.2); White Blood Count 14.6 th/mm3 (4.0-11.0)
[2018-01-05 06:54] LABS: Albumin 2.7 g/dL (3.4-5.0); Anion Gap 12 meq/L (5-15); Aspartate Aminotransferase 16 U/L (15-37); Blood Urea Nitrogen 34 mg/dL (7-18); Calcium 8.6 mg/dL (8.5-10.1); Carbon Dioxide 23.4 meq/L (21.0-32.0); Chloride 107 meq/L (98-107); Glomerular Filtration Rate 37 mL/min (>89); Glucose,Random 261 mg/dL (74-106); Potassium 4.3 meq/L (3.5-5.1); Sodium 142 meq/L (136-145)
[2018-01-05 06:56] LABS: Alanine Aminotransferase 22 U/L (12-78)
[2018-01-05 06:58] LABS: Alkaline Phosphatase 57 U/L (45-117); Total Protein 6.8 g/dL (6.4-8.2)
[2018-01-05 08:16] VITALS: RESP 20; O2SAT 95
[2018-01-05] MEDS ORDERED: Furosemide 40 MG Tablet PO SCH (09:00)
[2018-01-05] MEDS: Metoprolol Tartrate 50 MG Tablet PO SCH (10:09)
[2018-01-05] MEDS: Budesonide-Formoterol 160/4.5 MCG 6 GM Inhaler INH SCH (10:09)
[2018-01-05] MEDS: Ferrous Sulfate 325 MG Tablet PO SCH (10:10)
[2018-01-05 11:05] VITALS: PULSE 79
--- NOTE | 2018-01-05 11:49 | P.PNFP ---
Subjective Interval history: Patient evaluated this morning while standing and brushing his teeth. Patient is feeling much better today. He states he feels like "a million bucks". Doing well on room air. No events overnight. He denies any fevers, chest pain, shortness of breath, abdominal pain, urinary symptoms. Patient is ready to be discharged. All questions and comments were answered at bedside. <SujataisraelMichelle - 01/05/18 11:49> Results - Labs Result diagrams: 01/05/18 06:05 01/05/18 06:05 <Lisa Garber - 01/05/18 20:01> Abnormal lab results 01/04/18 01/05/18 01/05/18 Range/Units 20:54 05:45 06:05 WBC 14.6 H (4.0-11.0) th/mm3 RBC 4.33 L (4.50-5.90) mil/mm3 Hgb 11.9 L (13.0-17.0) gm/dL Hct 35.7 L (39.0-51.0) % Neut % (Auto) 91.3 H (16.0-70.0) % Lymph % (Auto) 4.5 L (9.0-44.0) % Neut # (Auto) 13.3 H (1.8-7.7) th/mm3 Lymph # (Auto) 0.7 L (1.0-4.8) th/mm3 PT (9.8-11.6) sec BUN (7-18) mg/dL Creatinine (0.60-1.30) mg/dL Estimated GFR (>89) mL/min POC Glucose 314 H 301 H (68-110) mg/dl Random Glucose (74-106) mg/dL Albumin (3.4-5.0) g/dL 01/05/18 01/05/18 01/05/18 Range/Units 06:05 06:05 08:29 WBC (4.0-11.0) th/mm3 RBC (4.50-5.90) mil/mm3 Hgb (13.0-17.0) gm/dL Hct (39.0-51.0) % Neut % (Auto) (16.0-70.0) % Lymph % (Auto) (9.0-44.0) % Neut # (Auto) (1.8-7.7) th/mm3 Lymph # (Auto) (1.0-4.8) th/mm3 PT 21.0 H (9.8-11.6) sec BUN 34 H (7-18) mg/dL Creatinine 1.79 H (0.60-1.30) mg/dL Estimated GFR 37 L (>89) mL/min POC Glucose 239 H (68-110) mg/dl Random Glucose 261 H (74-106) mg/dL Albumin 2.7 L (3.4-5.0) g/dL Short CBC 01/05/18 Range/Units 06:05 WBC 14.6 H (4.0-11.0) th/mm3 Hgb 11.9 L (13.0-17.0) gm/dL Hct 35.7 L (39.0-51.0) % Plt Count 196 (150-450) th/mm3 BMP 01/05/18 06:05 Sodium 142 Potassium 4.3 D Chloride 107 Carbon Dioxide 23.4 BUN 34 H Creatinine 1.79 H Calcium 8.6 Liver Function 01/05/18 Range/Units 06:05 Total Bilirubin 0.4 (0.2-1.0) mg/dL AST 16 (15-37) U/L ALT 22 (12-78) U/L Alkaline Phosphatase 57 (45-117) U/L Albumin 2.7 L (3.4-5.0) g/dL <Lisa Garber - 01/05/18 20:01> Abnormal lab results 01/03/18 01/04/18 01/04/18 Range/Units 11:45 05:23 11:59 WBC (4.0-11.0) th/mm3 RBC (4.50-5.90) mil/mm3 Hgb (13.0-17.0) gm/dL Hct (39.0-51.0) % Neut % (Auto) (16.0-70.0) % Lymph % (Auto) (9.0-44.0) % Neut # (Auto) (1.8-7.7) th/mm3 Lymph # (Auto) (1.0-4.8) th/mm3 PT (9.8-11.6) sec BUN (7-18) mg/dL Creatinine (0.60-1.30) mg/dL Estimated GFR (>89) mL/min POC Glucose 317 H (68-110) mg/dl Random Glucose (74-106) mg/dL Albumin (3.4-5.0) g/dL Procalcitonin 32.26 H (0.00-0.08) ng/mL Urine Clarity Cloudy H (Clear) Urine Urobilinogen 2.0 H (Less than 2) mg/dL Ur Leukocyte Esterase Small H (Negative) Urine RBC 4 H (0-3) /hpf Urine WBC 22 H (0-5) /hpf Urine WBC Clumps Rare H (None) Triple Phos Crystals Many H (None) /hpf Amorphous Sediment Many H (None) /hpf Urine Bacteria Many H (None) /hpf Urine Mucus Few H (Occasional) /lpf 01/04/18 01/04/18 01/05/18 Range/Units 16:54 20:54 05:45 WBC (4.0-11.0) th/mm3 RBC (4.50-5.90) mil/mm3 Hgb (13.0-17.0) gm/dL Hct (39.0-51.0) % Neut % (Auto) (16.0-70.0) % Lymph % (Auto) (9.0-44.0) % Neut # (Auto) (1.8-7.7) th/mm3 Lymph # (Auto) (1.0-4.8) th/mm3 PT (9.8-11.6) sec BUN (7-18) mg/dL Creatinine (0.60-1.30) mg/dL Estimated GFR (>89) mL/min POC Glucose 423 H 314 H 301 H (68-110) mg/dl Random Glucose (74-106) mg/dL Albumin (3.4-5.0) g/dL Procalcitonin (0.00-0.08) ng/mL Urine Clarity (Clear) Urine Urobilinogen (Less than 2) mg/dL Ur Leukocyte Esterase (Negative) Urine RBC (0-3) /hpf Urine WBC (0-5) /hpf Urine WBC Clumps (None) Triple Phos Crystals (None) /hpf Amorphous Sediment (None) /hpf Urine Bacteria (None) /hpf Urine Mucus (Occasional) /lpf 0701/05/18 01/05/18 Range/Units 06:05 06:05 06:05 WBC 14.6 H (4.0-11.0) th/mm3 RBC 4.33 L (4.50-5.90) mil/mm3 Hgb 11.9 L (13.0-17.0) gm/dL Hct 35.7 L (39.0-51.0) % Neut % (Auto) 91.3 H (16.0-70.0) % Lymph % (Auto) 4.5 L (9.0-44.0) % Neut # (Auto) 13.3 H (1.8-7.7) th/mm3 Lymph # (Auto) 0.7 L (1.0-4.8) th/mm3 PT 21.0 H (9.8-11.6) sec BUN 34 H (7-18) mg/dL Creatinine 1.79 H (0.60-1.30) mg/dL Estimated GFR 37 L (>89) mL/min POC Glucose (68-110) mg/dl Random Glucose 261 H (74-106) mg/dL Albumin 2.7 L (3.4-5.0) g/dL Procalcitonin (0.00-0.08) ng/mL Urine Clarity (Clear) Urine Urobilinogen (Less than 2) mg/dL Ur Leukocyte Esterase (Negative) Urine RBC (0-3) /hpf Urine WBC (0-5) /hpf Urine WBC Clumps (None) Triple Phos Crystals (None) /hpf Amorphous Sediment (None) /hpf Urine Bacteria (None) /hpf Urine Mucus (Occasional) /lpf 01/05/18 Range/Units 08:29 WBC (4.0-11.0) th/mm3 RBC (4.50-5.90) mil/mm3 Hgb (13.0-17.0) gm/dL Hct (39.0-51.0) % Neut % (Auto) (16.0-70.0) % Lymph % (Auto) (9.0-44.0) % Neut # (Auto) (1.8-7.7) th/mm3 Lymph # (Auto) (1.0-4.8) th/mm3 PT (9.8-11.6) sec BUN (7-18) mg/dL Creatinine (0.60-1.30) mg/dL Estimated GFR (>89) mL/min POC Glucose 239 H (68-110) mg/dl Random Glucose (74-106) mg/dL Albumin (3.4-5.0) g/dL Procalcitonin (0.00-0.08) ng/mL Urine Clarity (Clear) Urine Urobilinogen (Less than 2) mg/dL Ur Leukocyte Esterase (Negative) Urine RBC (0-3) /hpf Urine WBC (0-5) /hpf Urine WBC Clumps (None) Triple Phos Crystals (None) /hpf Amorphous Sediment (None) /hpf Urine Bacteria (None) /hpf Urine Mucus (Occasional) /lpf Short CBC 01/05/18 Range/Units 06:05 WBC 14.6 H (4.0-11.0) th/mm3 Hgb 11.9 L (13.0-17.0) gm/dL Hct 35.7 L (39.0-51.0) % Plt Count 196 (150-450) th/mm3 BMP 01/05/18 06:05 Sodium 142 Potassium 4.3 D Chloride 107 Carbon Dioxide 23.4 BUN 34 H Creatinine 1.79 H Calcium 8.6 Liver Function 01/05/18 Range/Units 06:05 Total Bilirubin 0.4 (0.2-1.0) mg/dL AST 16 (15-37) U/L ALT 22 (12-78) U/L Alkaline Phosphatase 57 (45-117) U/L Albumin 2.7 L (3.4-5.0) g/dL Urine 01/03/18 Range/Units 11:45 Urine Color Yumiko (Yellw/Straw) Urine Clarity Cloudy H (Clear) Urine pH 8.0 (5.0-8.5) Ur Specific [place] 1.014 (1.002-1.035) Urine Protein 500 or greater (Neg-Trace) mg/dL Urine Glucose (UA) Negative (Negative) mg/dL <Michelle Maria - 01/05/18 11:49> Physical Exam Vital signs: Vital Signs 01/04/18 20:41 01/04/18 21:00 01/04/18 22:00 Temperature Pulse Rate 95 H 88 92 H Respiratory Rate 16 Blood Pressure Pulse Oximetry 95 01/04/18 23:00 01/05/18 00:00 01/05/18 00:37 Temperature 98 F Pulse Rate 91 H 86 84 Respiratory Rate 16 16 Blood Pressure 124/75 Pulse Oximetry 95 01/05/18 01:00 01/05/18 02:00 01/05/18 03:00 Temperature 98.5 F Pulse Rate 90 90 96 H Respiratory Rate 16 Blood Pressure 118/71 Pulse Oximetry 94 L 01/05/18 04:00 01/05/18 05:00 01/05/18 06:00 Temperature Pulse Rate 91 H 92 H 100 H Respiratory Rate Blood Pressure Pulse Oximetry 01/05/18 07:00 01/05/18 08:00 01/05/18 08:15 Temperature 97.3 F L Pulse Rate 95 H 90 Respiratory Rate 15 Blood Pressure 141/76 H Pulse Oximetry 96 95 01/05/18 08:16 01/05/18 09:00 01/05/18 10:00 Temperature Pulse Rate 89 102 H 81 Respiratory Rate 20 Blood Pressure Pulse Oximetry 01/05/18 11:00 Temperature Pulse Rate 79 Respiratory Rate Blood Pressure Pulse Oximetry Intake & Output 01/05/18 01/05/18 01/06/18 06:59 18:59 06:59 Intake Total 340 / 340 Output Total 1105 / 1105 Balance -765 / -765 Weight 90.5 kg Intake: IV 100 / 100 Rocephin Inj 1,000 MG In NS Inj 100 / 100 100 ML @ 200 mls/hr IV.SIG Q24H [facility] Rx#:[id number] Oral 240 / 240 Output: Urine 1105 / 1105 Other: # Bowel Movements 0 <Lisa Garber - 01/05/18 20:01> Vital Signs 01/04/18 12:00 01/04/18 12:05 01/04/18 13:00 Temperature Pulse Rate 78 74 92 H Respiratory Rate 20 Blood Pressure Pulse Oximetry 01/04/18 14:00 01/04/18 15:00 01/04/18 16:00 Temperature 98.1 F Pulse Rate 87 89 79 Respiratory Rate 16 Blood Pressure 131/75 Pulse Oximetry 98 01/04/18 16:29 01/04/18 17:00 01/04/18 18:00 Temperature Pulse Rate 83 84 84 Respiratory Rate 20 Blood Pressure Pulse Oximetry 01/04/18 19:00 01/04/18 20:00 07/23/18 20:41 Temperature 98.2 F Pulse Rate 82 85 95 H Respiratory Rate 16 16 Blood Pressure 139/71 Pulse Oximetry 95 95 01/04/18 21:00 01/04/18 22:00 01/04/18 23:00 Temperature 98 F Pulse Rate 88 92 H 91 H Respiratory Rate 16 Blood Pressure 124/75 Pulse Oximetry 95 01/05/18 00:00 01/05/18 00:37 01/05/18 01:00 Temperature Pulse Rate 86 84 90 Respiratory Rate 16 Blood Pressure Pulse Oximetry 01/05/18 02:00 01/05/18 03:00 01/05/18 04:00 Temperature 98.5 F Pulse Rate 90 96 H 91 H Respiratory Rate 16 Blood Pressure 118/71 Pulse Oximetry 94 L 01/05/18 05:00 01/05/18 06:00 01/05/18 07:00 Temperature Pulse Rate 92 H 100 H 87 Respiratory Rate Blood Pressure Pulse Oximetry 01/05/18 08:00 01/05/18 08:15 01/05/18 08:16 Temperature Pulse Rate 90 89 Respiratory Rate 20 Blood Pressure Pulse Oximetry 95 01/05/18 09:00 01/05/18 10:00 01/05/18 11:00 Temperature Pulse Rate 102 H 81 79 Respiratory Rate Blood Pressure Pulse Oximetry Intake & Output 01/04/18 01/05/18 01/05/18 18:59 06:59 18:59 Intake Total 2930 / 2930 340 / 340 Output Total 500 / 500 1105 / 1105 Balance 2430 / 2430 -765 / -765 Weight 90.5 kg Intake: IV 1950 / 1950 100 / 100 Rocephin Inj 1,000 MG In NS Inj 100 / 100 100 ML @ 200 mls/hr IV.SIG Q24H [facility] Rx#:[id number] Oral 980 / 980 240 / 240 Output: Urine 500 / 500 1105 / 1105 Other: Date of Last Bowel Movement 01/02/18 # Bowel Movements 0 <Michelle Maria - 01/05/18 11:49> Narrative: Well-appearing man, standing, in no acute distress. <Michelle Maria - 01/05/18 11:49> - Constitutional no acute distress <Michelle Maria - 01/05/18 11:49> - Routine HEENT Exam Head: Present: normocephalic, atraumatic <Michelle Maria - 01/05/18 11:49> - Routine Respiratory Exam Present: CTA bilaterally. Absent: stridor, wheezes, crackles <Michelle Maria - 01/05/18 11:49> - Routine Cardiovascular Exam Present: RRR, S1, S2. Absent: murmur <Michelle Maria - 01/05/18 11:49> - Routine Abdominal Exam Present: soft, normoactive bowel sounds <Michelle Maria - 01/05/18 11:49> Assessment and Plan - Assessment (1) Community acquired pneumonia Code(s): J18.9 - Pneumonia, unspecified organism Status: Acute (2) Abnormal finding on urinalysis Code(s): R82.90 - Unspecified abnormal findings in urine Status: Acute (3) COPD (chronic obstructive pulmonary disease) Code(s): J44.9 - Chronic obstructive pulmonary disease, unspecified Status: Acute (4) Kidney disease, chronic, stage III (GFR 30-59 ml/min) Code(s): N18.3 - Chronic kidney disease, stage 3 (moderate) Status: Acute (5) Afib Code(s): I48.91 - Unspecified atrial fibrillation Status: Acute (6) Elevated troponin Code(s): R74.8 - Abnormal levels of other serum enzymes Status: Acute (7) CAD (coronary artery disease) Code(s): I25.10 - Atherosclerotic heart disease of mor[place] coronary artery without angina pectoris Status: Acute (8) Diabetes Code(s): E11.9 - Type 2 diabetes mellitus without complications Status: Acute (9) CHF (congestive heart failure) Code(s): I50.9 - Heart failure, unspecified Status: Acute (10) Nutrition, metabolism, and development symptoms Code(s): R63.8 - Other symptoms and signs concerning food and fluid intake Status: Acute (11) DVT prophylaxis Status: Acute <Lisa Garbre - 01/05/18 20:01> (1) Community acquired pneumonia Code(s): J18.9 - Pneumonia, unspecified organism Status: Acute Plan: Shortness of breath on admission, history of COPD, no recent history of illness , 88% O2 on room air Tachycardic and tachypneic on admission, ABG alkalotic with a pH of 7.5, indicates hyperventilation Met SIRS criteria on admission leukocytosis 15, tachycardia 126, tachypnea 25 + source (pneumonia) = Sepsis Urine strep pneumococcal urine antigen: positive Blood cultures no growth in 1 day Legionella urine, flu negative CTA: No evidence of pulmonary emboli, lingula and left lower lobe infiltrate most characteristic of pneumonia, small focal areas of abnormal opacity in the right middle lobe as well, underlying emphysema Chest x-ray: Patchy infiltrate in left perihilar region and left lung base, characteristic of pneumonia 01/05: No growth on blood cultures (day 2). White count trending downward from 18 to 14.6 today. Vital signs remained stable and patient afebrile. Patient is ready to be discharged today. Will switch from ceftriaxone IV to Augmentin p.o. for 5 more days. Patient is clear to auscultation bilaterally today and has never been treated with steroids for his COPD. Will D/C Solu-Medrol. Patient agreeable not to continue on prednisone after discharge. Patient is instructed to continue with 2.5 mg warfarin for remaining course of antibiotics and to resume his normal dose of 5 mg after antibiotics is completed. (2) Abnormal finding on urinalysis Code(s): R82.90 - Unspecified abnormal findings in urine Status: Acute Plan: UA: Small leukocyte esterase, many bacteria No urinary symptoms. Urine culture resulted: Positive for Klebsiella pneumonia and Providencia rettgeri. Sensitive to Augmentin. Will be discharged on Augmentin for 5 more days. Lactobacillus ordered for GI prophylaxis. (3) COPD (chronic obstructive pulmonary disease) Code(s): J44.9 - Chronic obstructive pulmonary disease, unspecified Status: Acute Plan: Patient O2 sat 94 percentile on room air. Tolerating well above goal of 92%. Patient ambulating, denies shortness of breath, wheezing. Patient will be discharged home today and advised to continue home Advair and Symbicort as needed. Patient is clear to auscultation bilaterally today and has never been treated with steroids for his COPD. Will D/C Solu-Medrol. Patient agreeable not to continue on prednisone after discharge. (4) Kidney disease, chronic, stage III (GFR 30-59 ml/min) Code(s): N18.3 - Chronic kidney disease, stage 3 (moderate) Status: Acute Plan: Creatinine 1.91 with history of CKD stage III, this is likely baseline although we have no baseline values to compare to Patient has good urine output. No electrolyte abnormalities noted aside from his chronic CKD. Creatinine has decreased from 1.29 to 1.79 (5) Afib Code(s): I48.91 - Unspecified atrial fibrillation Status: Acute Plan: History of atrial fibrillation, INR goal between 2.0 and 3.0 INR: 2.1, therapeutic. Will lower dose of warfarin to 2.5mg daily while on antibiotics Patient instructed to continue 2.5 mg of warfarin until antibiotic course is completed. Patient will resume at home dose of 5 mg warfarin after completion of antibiotics. PT/INR ordered to be done in 5 days. (6) Elevated troponin Code(s): R74.8 - Abnormal levels of other serum enzymes Status: Acute Plan: Elevated troponin of 0.12 on admission --> 0.14 --> 0.11 Patient denies any chest pain, currently asymptomatic Elevated troponin may be due to renal disease vs pulmonary disease (7) CAD (coronary artery disease) Code(s): I25.10 - Atherosclerotic heart disease of [place] coronary artery without angina pectoris Status: Acute Plan: Continue daily baby aspirin ACS workup negative (8) Diabetes Code(s): E11.9 - Type 2 diabetes mellitus without complications Status: Acute Plan: Well-controlled per patient Patient will continue home regimen upon discharge. Continue glipizide 10 mg daily Continue home Lantus 10U daily (9) CHF (congestive heart failure) Code(s): I50.9 - Heart failure, unspecified Status: Acute Plan: Patient denies any shortness of breath, wheezing, cough today. Continue home Lasix 40 mg daily with KCl supplementation Continue metoprolol 50 mg twice daily (10) Nutrition, metabolism, and development symptoms Code(s): R63.8 - Other symptoms and signs concerning food and fluid intake Status: Acute Plan: Fluids: Encourage p.o. fluid Electrolytes: stable Nutrition: Heart healthy diet (11) DVT prophylaxis Status: Acute Plan: DVT prophylaxis: Continue warfarin, follow-up coags <Michelle Maria - 01/05/18 13:27> - Assessment and Plan 77-year-old male, past medical history of COPD, chronic kidney disease stage III , atrial fibrillation, coronary artery disease, diabetes, CHF presents with community-acquired pneumonia. <Michelle Maria - 01/05/18 11:49> - Attending Attestation Patient seen and examined this morning, discussed with resident team. I agree with assessment and management as documented and discussed with me. Pt seen with his at bedside. He reports he is feeling back to normal. He denies SOB. He feels ready for discharge. Discharge home today. Discussed risks, benefits, side effects of antibiotics with patient. <Lisa Garber - 01/05/18 20:01> <Michelle Maria - Last Filed: 01/05/18 13:27> (1) Community acquired pneumonia Qualifiers: Laterality: unspecified laterality Qualified Code(s): J18.9 - Pneumonia, unspecified organism <Lisa Garber - Last Filed: 01/05/18 20:01> (1) Community acquired pneumonia Qualifiers: Laterality: unspecified laterality Qualified Code(s): J18.9 - Pneumonia, unspecified organism <Michelle Maria - Last Filed: 01/05/18 13:27> (1) Community acquired pneumonia Qualifiers: Laterality: unspecified laterality Qualified Code(s): J18.9 - Pneumonia, unspecified organism <Lisa Garber - Last Filed: 01/05/18 20:01> (1) Community acquired pneumonia Qualifiers: Laterality: unspecified laterality Qualified Code(s): J18.9 - Pneumonia, unspecified organism
[2018-01-05 14:13] VITALS: BP 141/76; TEMP 97.3
--- NOTE | 2018-01-07 12:08 | P.DS ---
Date of admission: 01/03/18 12:50 Primary care physician: UNKNOWN Brief History from admission: 77-year-old male, past medical history of COPD, chronic kidney disease stage III , atrial fibrillation, coronary artery disease, diabetes, CHF presents with community-acquired pneumonia. Pt had chills and shaking this morning and was having more trouble breathing than normal. This was at 08:30AM, and they arrived at 9:30AM in the ED. He did not take any of his medications yet today. He did use his Advair inhaler this morning in addition to his "emergency inhaler " which usually helps. He did not feel feverish. The did notice that his nose was turning purple colored this morning. As of now, he looks 100% better than this morning. He has never been hospitalized for his COPD before and this is the first time he has felt this time of shortness of breath. Denies any chest pain/ pressure. Denies any N/V. No numbness/tingling. He did experience some dizzyness. The whole episode lasted about 1 hour until they got here and administered O2. Left leg was swollen 2 weeks ago at PCP's office and venous u/s was done, negative results. DS: Diagnosis - Discharge Diagnosis (1) Community acquired pneumonia Status: Acute (2) COPD (chronic obstructive pulmonary disease) Status: Acute (3) Kidney disease, chronic, stage III (GFR 30-59 ml/min) Status: Acute (4) Afib Status: Acute (5) Elevated troponin Status: Acute (6) Abnormal finding on urinalysis Status: Acute (7) CAD (coronary artery disease) Status: Acute (8) Diabetes Status: Acute (9) CHF (congestive heart failure) Status: Acute (10) Nutrition, metabolism, and development symptoms Status: Acute (11) DVT prophylaxis Status: Acute DS: Medications - Discharge Medications Prescriptions: amoxicillin-pot clavulanate [Augmentin] 1 tab PO BID 5 Days #10 tab Lactobacillus acidophilus 10 mg PO DAILY #30 cap warfarin [Coumadin] 2.5 mg PO DAILY@1600 5 Days tab DS: Summary Hospital Course: 77-year-old male, past medical history of COPD, chronic kidney disease stage III , atrial fibrillation, coronary artery disease, diabetes, CHF presents with community-acquired pneumonia. Patient was tacky cardiac, tachypneic, with a pH of 7.5 on admission. Patient met sepsis criteria on admission and was admitted as an inpatient. Urine strep pneumococcal urine antigen was positive. CTA ruled out PE. Blood cultures were negative. Patient improved rapidly on IV antibiotics and steroids and was discharged on Augmentin to complete a 7 day course of antibiotics and prednisone. Patient's warfarin was titrated appropriately due to concurrent antibiotic usage, his warfarin was decreased to 2.5 mg from 5 mg for the duration of his antibiotic course. He will follow-up with PT/INR in 5 days and his PCP will titrate accordingly. - Time Spent with Patient Total time spent providing and/or coordinating discharge services: - Quality: VTE Deep Vein Thrombosis/Pulmonary Embolism Present on Admission: No Results Procedures completed during hospitalization: none Labs on day of discharge: Preliminary micro results at discharge 01/03/18 11:20 Aerobic Blood Culture - Preliminary Blood - Peripheral No growth in 4 days Anaerobic Blood Culture - Preliminary No growth in 4 days 01/03/18 11:20 Aerobic Blood Culture - Preliminary Blood - Peripheral No growth in 4 days Anaerobic Blood Culture - Preliminary No growth in 4 days - Impressions ITS Impressions Chest X-Ray 01/03/18 10:58 CONCLUSION: Patchy infiltrate in the left perihilar region and left lung base most characteristic of pneumonia. Chest CTA 01/03/18 12:04 CONCLUSION: 1. No evidence of pulmonary emboli. 2. Lingula and left lower lobe infiltrate most characteristic of pneumonia. 3. Small focal area of abnormal opacity in the right middle lobe as well. 4. Underlying emphysema. Discharge Plan - Discharge Disposition Patient Disposition: Discharge Home - Discharge Condition Condition: Stable - Discharge Order Discharge Orders: Discharge Order (Routine); Ordered 01/05/18 Ordered By: Michelle Maria - Physicians Team Primary Care Provider: UNKNOWN, Attending Provider: Lisa Garber
== END 2018-01-05 12:50 | disposition home or self-care (01) ==
LOC: NEPC 10:33 → OBSVTOIN 12:50 → INTOOBSV 12:50 → NEDA 12:50 → HCIS 15:45
PROVIDERS: ADMIT Family Medicine; ATTEND Family Medicine